=== PATIENT | male | born 1945 | race Caucasian/White ===

== ENCOUNTER 2019-03-22 00:20 | Day surgery (SDC) | payer MEDICARE, SELFPAY ==
[2019-03-16 13:39] VITALS: BMI 26.5
[2019-03-22 09:42] VITALS: BMI 25.5
[2019-03-22] MEDS: LACTATED RINGERS 1,000 ML 150 ML IV CONT (09:57)
[2019-03-22 10:01] VITALS: BP 136/80; PULSE 105; RESP 16; TEMP 37.3; O2SAT 95; BMI 25.5
--- NOTE | 2019-03-22 10:09 | WPDANESEPPF ---
Anes - Initial Pre Proc Eval Procedure: Operation Date: 03/22/19 10:00 Proposed Procedures p Screening Colonoscopy - Jimmy Rojas MD Date/Time: 03/22/19 10:09 Surgeon: Jimmy Rojas MD Pre Op Diagnosis: NEOPLASM SCREENING Patient Data Age: 73 Gender: M Height: 5 ft 10 in Weight: 80.8 kg Last Vital Signs Temp 37.3 C 03/22/19 10:01 Pulse 105 H 03/22/19 10:01 Resp 16 03/22/19 10:01 BP 136/80 03/22/19 10:01 Pulse Ox 95 03/22/19 10:01 Allergies Allergy/AdvReac Type Severity Reaction Status Date / Time No Known Allergies Allergy Verified 03/22/19 09:58 Home Medications Medication Instructions Recorded Confirmed Type albuterol sulfate 90 mcg/actuation 1 puff INHALATION Q4H PRN 01/10/19 03/16/19 History aerosol inhaler aspirin 81 mg tablet,delayed 81 mg PO DAILY 01/10/19 03/16/19 History release bimatoprost 0.01 % eye drops 1 drop EACH EYE QPM 01/10/19 03/16/19 History fluticasone propionate 50 2 spray NASAL DAILY 01/10/19 03/22/19 History mcg/actuation nasal spray,suspension levothyroxine 100 mcg tablet 100 mcg PO DAILY 01/10/19 03/16/19 History omega-3 fatty acids 1,000 mg 1,000 mg PO DAILY 01/10/19 03/16/19 History capsule pravastatin 40 mg tablet 40 mg PO DAILY #90 tablet 01/19/19 03/16/19 Rx umeclidinium 62.5 mcg-vilanterol 1 inhalation INHALATION DAILY 03/14/19 03/16/19 History 25 mcg/actuation powdr for inhalation Patient hx anesthesia problems: none Family hx anesthesia problems: none PMFSH Family History Family History Other No problems noted. Social History Social History Smoking status: Former smoker Alcohol intake: never Substance use: never Anes - Eval Final PreProcedure Day of Procedure 03/22/19 10:09 Patient weight: normal Heart: regular rate and rhythm Lungs: clear to auscultation Airway: Mallampati scale class II Neurological: alert and oriented Last oral intake: >/= 8 hours ASA classification: III Emergent: no Anesthetic plan: proceed Anesthesia type and monitoring: general GIVS and standard monitoring Informed Consent: The patient's anesthetic plan and its attendant risks and benefits were discussed with the patient/family/POA. Questions were solicited and answers provided to the satisfaction of the patient/family/POA.
--- NOTE | 2019-03-22 10:46 | PM.HPGS ---
History of Present Illness History of Present Illness Consent: Risks, benefits, and alternatives have been discussed and questions answered. Patient agrees to proceed with procedure. Chief complaint: NEOPLASM SCREENING Narrative: Calvin Ball is a 73 year old male here for screening colonoscopy, never had one. Review of Systems Constitutional: Constitutional: Denies headache(s) and Denies weakness Eyes: Eyes: Denies blurry vision ENT: Reports Normal hearing present, Denies headache(s) and Denies neck pain Cardiovascular: Cardiovascular: Denies chest pain and Denies dyspnea Respiratory: Respiratory: Denies dyspnea Gastrointestinal: Gastrointestinal: Reports no additional gastrointestinal complaints Genitourinary: Genitourinary: Denies dysuria Musculoskeletal: Musculoskeletal: Denies neck pain Integumentary/Breasts: Skin/Breast: Denies dry skin Neurologic: Reports Normal hearing present, Denies headache(s) and Denies weakness Psychiatric: Psychiatric: Denies anxiety Endocrine: Endocrine: Denies change in body appearance Hematologic/Lymphatic: Hematologic/Lymphatic: Denies easy bleeding Allergic/Immunologic: Allergic/Immunologic: Denies urticaria PMFSH Family History Family History Other No problems noted. Social History Social History Smoking status: Former smoker Alcohol intake: never Substance use: never Meds Home Medications and Allergies Home Medications Medication Instructions Recorded Confirmed Type albuterol sulfate 90 mcg/actuation 1 puff INHALATION Q4H PRN 01/10/19 03/16/19 History aerosol inhaler aspirin 81 mg tablet,delayed 81 mg PO DAILY 01/10/19 03/16/19 History release bimatoprost 0.01 % eye drops 1 drop EACH EYE QPM 01/10/19 03/16/19 History fluticasone propionate 50 2 spray NASAL DAILY 01/10/19 03/22/19 History mcg/actuation nasal spray,suspension levothyroxine 100 mcg tablet 100 mcg PO DAILY 01/10/19 03/16/19 History omega-3 fatty acids 1,000 mg 1,000 mg PO DAILY 01/10/19 03/16/19 History capsule pravastatin 40 mg tablet 40 mg PO DAILY #90 tablet 01/19/19 03/16/19 Rx umeclidinium 62.5 mcg-vilanterol 1 inhalation INHALATION DAILY 03/14/19 03/16/19 History 25 mcg/actuation powdr for inhalation Allergies Allergy/AdvReac Type Severity Reaction Status Date / Time No Known Allergies Allergy Verified 03/22/19 09:58 Vital Signs Vital Signs - 24 hr 03/22/19 10:01 Temperature 99.1 F Pulse Rate 105 H Respiratory Rate 16 Blood Pressure 136/80 Pulse Oximetry 95 Exam Const: General: comfortable and no acute distress HENMT: General nose exam: Normal nares present Eyes: General: appearance normal, both eyes and all related structures Neck: Neck: no JVD Resp: Auscultation: clear to auscultation bilaterally Cardio: Rate: regular rate Rhythm: regular rhythm GI: Inspection: non-distended GI Palp: Yes Soft to palpation Skin: General skin exam: normal color Neuro: General: gait normal Speech: normal speech Extrem: General: normal to inspection Psych: Mental Status: mental status grossly normal Assessment and Plan Assessment and plan (1) Colon cancer screening: Code(s): Z12.11 - Encounter for screening for malignant neoplasm of colon Status: Acute Assessment and Plan: will proceed with colonoscopy (2) COPD (chronic obstructive pulmonary disease) with emphysema: Qualifiers: Emphysema type: unspecified Qualified Code(s): J43.9 - Emphysema, unspecified Code(s): J43.9 - Emphysema, unspecified Status: Acute
[2019-03-22 11:08] VITALS: BP 88/59; PULSE 92; RESP 18; O2SAT 94
[2019-03-22 11:18] VITALS: BP 120/54; PULSE 89; RESP 20; O2SAT 94
[2019-03-22 11:28] VITALS: BP 119/84; PULSE 89; RESP 20; O2SAT 94
== END 2019-03-22 11:43 | disposition home or self-care (01) ==
PROVIDERS: PCP Internal Medicine; Visit Provider Internal Medicine Gastroenterology
PROC: 0DJD8ZZ Inspection of Lower Intestinal Tract, Via Natural or Artificial Opening Endoscopic (ICD-10-PCS; CPT 45378; principal; 2019-03-22 10:00)
DX: Z12.11 Encounter for screening for malignant neoplasm of colon (principal); D12.4 Benign neoplasm of descending colon; D12.5 Benign neoplasm of sigmoid colon; K57.30 Diverticulosis of large intestine without perforation or abscess without bleeding; K64.8 Other hemorrhoids; J43.9 Emphysema, unspecified; Z79.82 Long term (current) use of aspirin; Z87.891 Personal history of nicotine dependence
CPT/HCPCS: 45385; 88305; J2704; J7120

== ENCOUNTER 2020-04-11 11:06 | Outpatient (CLI) | payer MEDICARE, SELFPAY ==
--- NOTE | ~2020-04-11 | XR_ITS ---
EXAMINATION: XR shoulder RT min 2V DATE: 04/11/2020 11:35 INDICATION: Right shoulder pain. TECHNIQUE: 4 views of right shoulder were obtained. COMPARISON: None. FINDINGS: Bone alignment is normal. No fracture. There is mild osteoarthritis of glenohumeral joint a nd severe osteoarthritis of acromioclavicular joint. There is mild scarring at right lung apex. IMPRESSION: 1. Polyarticular osteoarthritis. Reviewed, dictated and finalized at location A. NE METEOROLOGIST
== END 2020-04-11 11:07 | disposition home or self-care (01) ==
PROVIDERS: PCP Internal Medicine; Visit Provider Nurse Practitioner
DX: M19.011 Primary osteoarthritis, right shoulder (principal)
CPT/HCPCS: 73030

== ENCOUNTER → 2020-05-21 11:27 | Outpatient (REF) | payer MEDICARE, SELFPAY | LOC: ANHLAB 11:27 | PROVIDERS: PCP Internal Medicine; Visit Provider Nurse Practitioner | DX: C44.42 Squamous cell carcinoma of skin of scalp and neck (principal) | CPT/HCPCS: 88305 ==

== ENCOUNTER → 2020-06-17 09:29 | Outpatient (REF) | payer MEDICARE, SELFPAY | LOC: ANHLAB 09:29 | PROVIDERS: PCP Internal Medicine; Visit Provider Nurse Practitioner | DX: C44.42 Squamous cell carcinoma of skin of scalp and neck (principal) | CPT/HCPCS: 88305; 88331 ==

== ENCOUNTER 2021-06-23 09:00 | Outpatient (RCR) | payer MEDICARE, SELFPAY ==
[2021-06-05 09:15] VITALS: BP_SYST 160
--- NOTE | 2021-06-05 10:12 | PTOPEVAL ---
PHYSICAL THERAPY EVALUATION AND PLAN OF CARE 06-05-21 Thank you for referring Calvin Ball to [facility] for the diagnosis of R shoulder pain. He is scheduled to be seen for therapy? 2 x/week for 3 weeks. Please review, sign, date and return this plan of care EVANGELIST. I agree with and certify that the following plan of care is medically necessary. Referring Physician Date Attending Provider: Sampson Huitron MD Past Medical History Source of Past Medical History Recalled from Previous Visit, Confirmed with Patient/Family Neurological History Hx Neurological Disorders No Significant History Cardiovascular History Hx Hypercholesterolemia Yes: meds Respiratory History Hx Chronic Obstructive Pulmonary Disease Yes (COPD) Gastrointestinal History Hx Gastrointestinal Disorders No Significant History Genitourinary History Hx Transurethral Resection Yes Musculoskeletal History Hx Orthopedic Surgery Yes: Rotator Cuff Bilateral 1987 Hx Other Musculoskeletal Disorders Yes: neck pain Hematological History Hx Hematological Disorders No Significant History Endocrine History Hx Endocrine Disorders No Significant History HEENT History Hx Glaucoma Yes Integumentary History Hx Skin Disorders No Significant History Reproductive History Hx Reproductive Disorders No Significant History Psychosocial History Hx Psychiatric Disorders No Significant History Pain History History of Any Previous or Ongoing No Significant History Instance of Pain Anesthesia History Hx Anesthesia Reactions No Significant History Evaluation Information Diagnosis R shoulder pain Onset Nov 2020 Subjective Information chronic pain in shoulder, Query Text:As Reported By Patient/ gradual increase, without any Family injury to shoulder- more problems with sleeping; had an injection into shoulder : helped the pain; X-Rays For This Problem Yes: mild GH OA,decrease acromial humeral space,w/spur ant acromion,A-C jt mod-severe OA Previous Treatments Previous Treatments For This Problem no PT for shoulder Prior Level of Function Activity Level (Last 3 Months) Occupation retired Hand Dominance Right Activity of Daily Living Ability Independent Indoor/Home Mobility Independent Community Mobility Independent Stairs Ability Independent Functional Cognition (Planning, Shopping Independent , Taking Medications) Cooking Yes Cleaning Yes Laundry Yes Shop
--- NOTE | 2021-06-23 09:36 | PCPTNOTE ---
PHYSICAL THERAPY DISCHARGE REPORT 06-23-21 Attending Provider: Sampson Huitron MD Patient:Calvin Ball Date of :1945 Calvin has received 6 PT sessions, from June 05 to today, for the diagnosis of R shoulder pain. Pain: he reports pain range of 0-3/10 in anterior shoulder; pain is increased with yard work for 5 hours and sleeping is not disrupted due to pain. ROM: R shoulder AROM is WNL and without pain. Strength: functional strength testing: R shoulder flexion and abduction with 4# hand weight, through full ROM for 10 reps. Home exercise program: Calvin is independent with his home exercises, is using green theraband for resistance. The goals have been achieved. He is to continue with his home exercise program. Thank you for referring Mr. Ball to [facility]. Please review, sign, date and return this discharge summary EVANGELIST. I have been updated about the patient's current status and I agree with discharge from the above service at this time. Referring Physician Date
== END 2021-06-23 15:47 | disposition home or self-care (01) ==
LOC: ANHPT 09:00
PROVIDERS: PCP Internal Medicine; Visit Provider Orthopaedic Surgery
DX: M25.511 Pain in right shoulder (principal)
CPT/HCPCS: 97014; 97110; 97140; 97161; 97530; G0283

== ENCOUNTER 2022-08-06 12:31 | Outpatient (CLI) | payer MEDICARE, SELFPAY ==
[2022-08-06] VITALS (7 sets, daily range): PULSE 98–114; O2SAT 86–91
--- NOTE | ~2022-08-06 | CT_ITS ---
EXAMINATION: CT lung screening DATE: 08/06/2022 13:56 INDICATION: Personal history nicotine dependence, prior smoker with 50 pack year history TECHNIQUE: Computed tomography (CT) of the chest was performed without intravenous contrast. The dose -length product (DLP) was 128.60 mGy-cm. Automated exposure control and iterative reconstruction tech [employer] were employed. COMPARISON: 01/17/2019 FINDINGS: There is moderate emphysema. There is an approximately 4.9 x 1.4 cm bilobed, spiculated mas s of the left upper lobe. There is a stable 7 mm nodule upper lobe. No pleural effusion or pneumothor ax. No pathologically enlarged thoracic lymph nodes are identified. The heart size is normal. There i s calcified coronary artery atherosclerosis. There is a small sliding hiatal hernia. There are minima l airspace opacities of the right lower lobe, likely infectious or inflammatory There is enlargement of the main and central pulmonary arteries, consistent with pulmonary hypertension. IMPRESSION: 1. Lung-RADS category 4B: Very suspicious. Findings for which additional diagnostic testing and/or ti ssue sampling is recommended. Reviewed, dictated and finalized at location L. IMPRESSION: 1. Lung-RADS category 4B: Very suspicious. Findings for which additional diagno stic testing and/or tissue sampling is recommended.
--- NOTE | 2022-08-06 13:40 | HOMEO2EVAL ---
Evaluation was performed at [facility] Home Oxygen Evaluation RC: Home Oxygen (O2) Evaluation Start: 08/06/22 13:35 Freq: Status: Active Protocol: RPE Activity Type Activity Date Activity User E-sign Co-sign Detail Recorded Client Recorded Date Recorded By Document 08/06/22 12:45 [email or web address] [email or web address] 08/06/22 13:40 DJO Document 08/06/22 12:50 [email or web address] [email or web address] 08/06/22 13:40 DJO Document 08/06/22 12:55 [email or web address] [email or web address] 08/06/22 13:40 DJO Document 08/06/22 13:00 [email or web address] [email or web address] 08/06/22 13:40 DJO Document 08/06/22 13:05 [email or web address] [email or web address] 08/06/22 13:40 DJO Document 08/06/22 13:10 [email or web address] [email or web address] 08/06/22 13:40 DJO Document 08/06/22 13:40 [email or web address] [email or web address] 08/06/22 13:40 DJO 08/06/22 08/06/22 08/06/22 12:45 12:50 12:55 Home O2 Evaluation [Oxygen] -Test Phase Resting Resting Resting -Oxygen Delivery Room Air Nasal Cannula Nasal Cannula -Oxygen Flow Rate (L/min) 1 2 [Pulse Oximetry] -Pulse Oximetry (90-100 %) 86 L 88 L 91 [Pulse Rate] -Pulse Rate (60-100 beats/min) 98 99 100 [Evaluation] -Activity Tolerance [Exercise] -Ambulation Distance (feet) -Ambulation Distance (meters) [Charges] -Treatment Charges O2 Evaluation - Outpatient 08/06/22 08/06/22 08/06/22 13:00 13:05 13:10 Home O2 Evaluation [Oxygen] -Test Phase Exercise Exercise Exercise -Oxygen Delivery Nasal Cannula Nasal Cannula Nasal Cannula -Oxygen Flow Rate (L/min) 2 3 4 [Pulse Oximetry] -Pulse Oximetry (90-100 %) 86 L 88 L 90 [Pulse Rate] -Pulse Rate (60-100 beats/min) 108 H 112 H 114 H [Evaluation] -Activity Tolerance Good [Exercise] -Ambulation Distance (feet) 500 -Ambulation Distance (meters) 152.39 [Charges] -Treatment Charges 08/06/22 13:40 Home O2 Evaluation [Oxygen] -Test Phase Resting -Oxygen Delivery Nasal Cannula -Oxygen Flow Rate (L/min) 2 [Pulse Oximetry] -Pulse Oximetry (90-100 %) 91 [Pulse Rate] -Pulse Rate (60-100 beats/min) 99 [Evaluation] -Activity Tolerance [Exercise] -Ambulation Distance (feet) -Ambulation Distance (meters) [Charges] -Treatment Charges
--- NOTE | 2022-08-06 16:09 | WPDPFTINT ---
PFT Procedure Performed PFT Procedure Performed Spirometry with Pre/Post Bronchodilator Plethysmography (Lung Vol) Diffusing Cap (DLCO) Flow Vol Loop PFT Interpretation This is a pulmonary function test with pre and post-bronchodilator spirometry, plethysmography and diffusing capacity. The test was performed and results interpreted in accordance with the 2019 and 2005 ATS/ERS Task Force guidelines respectively using the Global Lung Function Initiative-2012 reference equations. Patient demonstrated good effort and cooperation. Reproducibility criteria were met. The quality of the pre bronchodilator spirometry maneuver was Grade A and post bronchodilator spirometry maneuver was Grade A. Findings: Spirometry: There is decreased maximal expiratory airflow at all lung volumes with concave expiratory flow tracing. The contour the inspiratory flow tracing is normal. The pre bronchodilator FVC is 3.42 L, 85% predicted. The pre bronchodilator FEV1 is 1.34 L, 45% predicted. The pre bronchodilator FEV1: FVC ratio is 39%. The post bronchodilator FVC is 3.45 L, representing 1% increase. The post bronchodilator FEV1 is 1.32 L, representing a 2% decrease. The post bronchodilator FEV1: FVC ratio is 38%. Plethysmography: The total lung capacity is 7.51 L, 106% predicted. The functional residual capacity is 5.12 L, 135% predicted. The residual volume is 3.93 L, 151% predicted. Diffusing capacity: The diffusing capacity unadjusted for hemoglobin and carboxyhemoglobin is 6.1, 25% predicted. The diffusing capacity adjusted for alveolar volume is 1.28, 34% predicted. Impression: There is a severe obstructive abnormality without significant improvement after inhaling a single dose of albuterol. The increase in residual volume is consistent with air trapping from an obstructive abnormality. The diffusing capacity unadjusted for hemoglobin and carboxyhemoglobin is severely decreased and remains severely decreased when adjusted for alveolar volume. There are no prior studies for comparison
== END 2022-08-06 12:32 | disposition home or self-care (01) ==
LOC: ANHPFT 12:33
PROVIDERS: PCP Family Medicine; Visit Provider Internal Medicine Critical Care Medicine
DX: Z12.2 Encounter for screening for malignant neoplasm of respiratory organs (principal); Z87.891 Personal history of nicotine dependence; J43.9 Emphysema, unspecified; R94.2 Abnormal results of pulmonary function studies; R91.8 Other nonspecific abnormal finding of lung field
CPT/HCPCS: 71271; 94060; 94618; 94726; 94729

== ENCOUNTER 2022-08-25 09:13 | Outpatient (CLI) | payer MEDICARE, SELFPAY ==
--- NOTE | ~2022-08-25 | PE_ITS ---
EXAMINATION: PET skull to mid thigh DATE: 08/25/2022 11:00 INDICATION: Solitary pulmonary nodule. TECHNIQUE: Blood glucose level was 118 mg/dL. 10.05 mCi of 18-fluorodeoxyglucose (18-FDG) was adminis tered i.v. Low dose computed tomography (CT) images were acquired from the base of the brain to the p roximal thighs for attenuation correction and anatomic localization. Automated exposure control was e mployed. Dose-length product (DLP) was 494 mGy-cm. Positron emission tomography (PET) images were acq uired in the same distribution. COMPARISON: Chest CT 08/06/2022, 01/17/2019 FINDINGS: Head/neck: There are no pathologically enlarged lymph nodes. Chest: There is severe emphysema. In the left lung upper lobe, there is a 5.7 x 2.2 cm peripheral mas s with maximum SUV of 15.6. In the left upper lobe, there is a 7 mm nodule without increased activity , stable from 01/17/19, likely benign. No pleural effusion. The heart size is normal. There are coron julia artery calcifications. No pericardial effusion. Calcified right hilar lymph nodes are consistent with old granulomatous disease. Abdomen/pelvis/proximal thighs: The liver, gallbladder, and spleen are normal. There is a small slidi ng hiatal hernia. The pancreas, adrenal glands, and kidneys are normal. There is a 4.1 cm fusiform an eurysm of infrarenal aorta. The bladder is distended. There are bilateral inguinal hernias containing fat. There are no dilated loops of bowel. The appendix is normal. There are no pathologically enlarg ed lymph nodes. There is no free intraperitoneal fluid. There is osseous malignancy. IMPRESSION: 1. 5.7 x 2.2 cm peripheral mass in left lung upper lobe with increased activity. Given the patient's home oxygen use, he is likely not a candidate for CT-guided biopsy. 2. Severe emphysema. 3. 4.1 cm fusiform aneurysm of infrarenal aorta. Reviewed, dictated and finalized at location A. IMPRESSION: 1. 5.7 x 2.2 cm peripheral mass in left lung upper lobe with increased activity . Given the patient's home oxygen use, he is likely not a candidate for CT-guid ed biopsy. 2. Severe emphysema. 3. 4.1 cm fusiform aneurysm of infrarenal aorta.
[2022-08-25 09:35] LABS: Glucose Point of Care 118 mg/dl (65-105)
== END 2022-08-25 09:14 | disposition home or self-care (01) ==
PROVIDERS: PCP Family Medicine; Visit Provider Internal Medicine Critical Care Medicine
DX: R91.1 Solitary pulmonary nodule (principal); J43.9 Emphysema, unspecified; R91.8 Other nonspecific abnormal finding of lung field; I71.9 Aortic aneurysm of unspecified site, without rupture
CPT/HCPCS: 78815; A9552

== ENCOUNTER 2022-09-09 09:51 | Outpatient (CLI) | payer MEDICARE, SELFPAY ==
--- NOTE | 2022-10-06 18:49 | WPDSLEEPSTUD ---
Sleep Study Date of Study: 09/09/22 Ordering Provider: Earnestine Beatty MD Interpreting Physician: Carolyn Romero, Sleep Study Type: Polysomnogram Height: 1.78 m Weight: 79.379 kg Body Mass Index: 25.1 Neck Circumference (inches): 17 [place]: 7 Reason for Sleep Study Had a SpO2 of 88% on PFT Sleep History The patient is a 77-year-old male with COPD, hypertension, hyperlipidemia, arthritis, hypothyroidism, seasonal allergies, glaucoma and history of tobacco use that had a sleep study ordered by his water commissioner. the patient rarely awakens from sleep short of breath. He occasionally awakens at night with heartburn, belching or cough. He occasionally snores but it is never loud enough that others complain. He denies having trouble sleeping when he has a cold. He rarely wakes up gasping for air throughout the night. He constantly has breathing problems at night observed by himself or others. He denies sweating excessively at night. He denies having heart palpitations or irregular heartbeats during. He frequently falls asleep during the day but never while driving. He denies sleep paralysis, cataplexy and hypnagogic / hypnopompic hallucination. He occasionally has trouble at school or work due to sleepiness. He denies feeling afraid of going to sleep. He denies having nightmares he rarely remembers his dreams. He frequently has thoughts racing through his mind. He denies feeling sad, depressed or anxious. He denies having muscular tension. He frequently notices parts of his body jerk. He occasionally kicks during the night. He occasionally has crawling and aching feelings in his legs and occasionally has leg pain he denies grinding his teeth during sleep and denies awakening with morning jaw pain. he is occasionally bothered by pain during the day rarely awakened by pain during the night. He occasionally wakes up feeling stiff in the morning. He occasionally wakes up with sore or achy muscles. He occasionally wakes up with pain in the neck, spine other joints. He goes to bed at 9:00 p.m. on both weekdays weekends. He can fall asleep quickly. He wakes up once throughout the night to urinate and is able to back asleep within 5 minutes. He wakes up 4 a.m. on weekdays 5:00 a.m. weekends. He typically gets 4-6 hours of sleep per night. He currently lives. He will consume caffeinated beverages within 2 hours of bedtime. He does engage in physical exercise before bedtime. He denies reading before falling asleep. He will take naps in afternoon or the evening but they are refreshing. He is a former smoker. He denies alcohol and recreational use. [facility] Past Medical History Medical History Arthritis Colon cancer screening Personal history of squamous cell carcinoma of skin Tobacco abuse Surgical History Surgical History History of shoulder surgery History of transurethral resection of prostate Family History Family History Mother Depression Cardiomyopathy Emphysema lung COPD (chronic obstructive pulmonary disease) Grandparent Diabetes mellitus Father Heart attack Sibling Cancer Heart attack Heart disease Arthritis Von Willebrand disease Blockage of kidney vein Appendicitis Carcinoma Social History Social History Smoking status: Former smoker Tobacco type: cigarettes Second hand tobacco smoke exposure: No Smoking end date: 09/08/21 Alcohol intake: never Substance use: never Substance use type: does not use Lack of Transportation: No Lack of Food: Never True Current Housing: I Have Housing Concerned About Future Housing: No Difficulty Paying Gas/Electric Bills: No Difficulty Paying for Meds: No Currently Unemploy
[2022-10-06 19:38] VITALS: BMI 25.1
== END 2022-09-10 05:55 | disposition home or self-care (01) ==
LOC: ANHCSM 09:53
PROVIDERS: PCP Family Medicine; Visit Provider Internal Medicine Critical Care Medicine
DX: G47.19 Other hypersomnia (principal); G47.34 Idiopathic sleep related nonobstructive alveolar hypoventilation
CPT/HCPCS: 95810

== ENCOUNTER 2022-10-23 08:29 | Outpatient (CLI) | payer MEDICARE, SELFPAY ==
--- NOTE | ~2022-10-23 | CT_ITS ---
Clinical Indication: Left lung cancer CT Scan of the Chest, Abdomen, and Pelvis with Contrast: Technique: Contiguous sections were acquired throughout the chest, abdomen, and pelvis after intraven ous administration of 100 cc of Omnipaque 350. Dose reduction technique was used on this scan by uti garciaing automated exposure control and iterative reconstruction technique. The dose-length product (DL P) was 578.33 mGy-cm. COMPARISON: 08/06/2022 Findings: There is no evidence of any significant mediastinal, hilar or axillary lymphadenopathy. The mediastin al soft tissues appear normal. There is no evidence of pleural or pericardial effusion. Spiculated mass in the peripheral left upper lobe is similar to prior exam. Severe emphysema present. The liver, spleen, pancreas, gallbladder, adrenals and kidneys are within normal limits. Infrarenal a bdominal aortic aneurysm measures 4.7 cm in diameter. No lymphadenopathy. No bowel obstruction or bowel wall thickening. There is no evidence to suggest acute appendicitis. Urinary bladder is unremarkable. No pelvic mass evident. No ascites. Impression: Spiculated mass in left upper lobe is similar to prior exam, consistent with malignancy. No evidence for metastatic disease identified. Severe emphysema. 4.7 cm infrarenal abdominal aortic aneurysm. Reviewed, dictated and finalized at location . Impression: Spiculated mass in left upper lobe is similar to prior exam, consistent with ma lignancy. No evidence for metastatic disease identified. Severe emphysema. 4.7 cm infrarenal abdominal aortic aneurysm.
[2022-10-23 09:23] LABS: Estimated Glomerular Filt Rate > 60
== END 2022-10-23 08:30 | disposition home or self-care (01) ==
PROVIDERS: PCP Internal Medicine Hematology & Oncology; Visit Provider Internal Medicine Hematology & Oncology
DX: C34.92 Malignant neoplasm of unspecified part of left bronchus or lung (principal); J43.9 Emphysema, unspecified; I71.40 Abdominal aortic aneurysm, without rupture, unspecified
CPT/HCPCS: 71260; 74177; Q9967

== ENCOUNTER 2022-10-26 12:35 | Day surgery (SDC) | payer MEDICARE, SELFPAY ==
[2022-09-22 13:58] VITALS: BMI 25.1
[2022-10-13 14:13] VITALS: BMI 23.7
[2022-10-26 12:58] VITALS: BP 110/68; PULSE 90; RESP 20; TEMP 36.6; O2SAT 93
[2022-10-26] MEDS: LACTATED RINGERS 1,000 ML 150 ML IV CONT (13:01)
--- NOTE | 2022-10-26 13:38 | WPDANESEPPF ---
Anes - Initial Pre Proc Eval Procedure: Operation Date: 10/26/22 14:45 Proposed Procedures p Screening Colonoscopy - Jimmy Rojas MD Date/Time: 10/26/22 13:38 Surgeon: Jimmy Rojas MD Pre Op Diagnosis: hx colon polyps Patient Data Age: 77 Gender: M Height: 1.78 m Weight: 75.1 kg Last Vital Signs Temp 98 F 10/26/22 12:58 Pulse 90 10/26/22 12:58 Resp 20 10/26/22 12:58 BP 110/68 10/26/22 12:58 Pulse Ox 93 10/26/22 12:58 O2 Del Method Nasal Cannula 10/26/22 12:58 O2 Flow Rate 3 10/26/22 12:58 Allergies Allergy/AdvReac Type Severity Reaction Status Date / Time No Known Allergies Allergy Verified 10/26/22 12:56 Home Medications Medication Instructions Recorded Confirmed Type aspirin 81 mg tablet,delayed 81 mg PO DAILY 01/10/19 10/26/22 History release bimatoprost 0.01 % eye drops 1 drop ophthalmic (eye) QPM 01/10/19 10/26/22 History (Lumigan) omega-3 fatty acids 1,000 mg 1,000 mg PO DAILY 01/10/19 10/26/22 History capsule (Fish Oil Concentrate) albuterol sulfate 2.5 mg/3 mL 2.5 mg (3 mL) inhalation Q8H PRN 05/25/22 10/26/22 Rx (0.083 %) solution for nebulization shortness of breath or wheezing #180 mL fluticasone propionate 50 2 spray intranasal DAILY #16 grams 07/21/22 10/26/22 Rx mcg/actuation nasal spray,suspension (Flonase Allergy Relief) albuterol sulfate 90 mcg/actuation 2 puff inhalation Q4H PRN 10/09/22 10/26/22 Rx aerosol inhaler (ProAir HFA) Shortness Of Breath #8.5 grams Trelegy Ellipta 100 mcg-62.5 1 inh inhalation Q24H 1 month #60 10/13/22 10/26/22 Rx mcg-25 mcg powder for inhalation ea (owivwdvtzoo-oploddory-tuolperq) amlodipine 5 mg tablet 5 mg PO DAILY 10/13/22 10/26/22 History sertraline 25 mg tablet 25 mg PO DAILY 1 month #30 tabs 10/13/22 10/26/22 Rx levothyroxine 100 mcg tablet 100 mcg PO DAILY 10/26/22 10/26/22 History pravastatin 40 mg tablet 40 mg PO DAILY 10/26/22 10/26/22 History Patient hx anesthesia problems: none Family hx anesthesia problems: none Results Review: All pre-operative results and documents have been reviewed as part of the pre-operative evaluation. [facility] Past Medical History Medical History Arthritis Colon cancer screening Personal history of squamous cell carcinoma of skin Tobacco abuse Surgical History Surgical History History of shoulder surgery History of transurethral resection of prostate Family History Family History Mother Depression Cardiomyopathy Emphysema lung COPD (chronic obstructive pulmonary disease) Grandparent Diabetes mellitus Father Heart attack Sibling Cancer Heart attack Heart disease Arthritis Von Willebrand disease Blockage of kidney vein Appendicitis Carcinoma Social History Social History Smoking status: Former smoker Tobacco type: cigarettes Second hand tobacco smoke exposure: No Smoking end date: 09/08/21 Alcohol intake: never Substance use: never Substance use type: does not use Lack of Transportation: No Lack of Food: Never True Current Housing: I Have Housing Concerned About Future Housing: No Difficulty Paying Gas/Electric Bills: No Difficulty Paying for Meds: No Currently Unemployed: No Education: High School Diploma/GED Difficulty w/ Childcare or Family Care: No Living arrangements: with family Occupation/Education: retired 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
[2022-10-26 14:44] VITALS: BP 87/58; PULSE 78; RESP 22; O2SAT 98
--- NOTE | 2022-10-26 14:46 | PM.HPGS ---
History of Present Illness History of Present Illness Consent: Risks, benefits, and alternatives have been discussed and questions answered. Patient agrees to proceed with procedure. Chief complaint: hx colon polyps Narrative: Calvin Ball is a 77 year old male with colon polyps in 2020 Review of Systems Constitutional: Constitutional: Denies headache(s) and Denies weakness Eyes: Eyes: Denies blurry vision ENT: Reports Normal hearing present, Denies headache(s) and Denies neck pain Cardiovascular: Cardiovascular: Denies chest pain and Denies dyspnea Respiratory: Respiratory: Denies dyspnea Gastrointestinal: Gastrointestinal: Reports no additional gastrointestinal complaints Genitourinary: Genitourinary: Denies dysuria Musculoskeletal: Musculoskeletal: Denies neck pain Integumentary/Breasts: Skin/Breast: Denies dry skin Neurologic: Reports Normal hearing present, Denies headache(s) and Denies weakness Psychiatric: Psychiatric: Denies anxiety Endocrine: Endocrine: Denies change in body appearance Hematologic/Lymphatic: Hematologic/Lymphatic: Denies easy bleeding Allergic/Immunologic: Allergic/Immunologic: Denies urticaria PMF Past Medical History Medical History (Updated 10/26/22 @ 14:47 by Jimmy Rojas MD) Adenomatous colon polyp Arthritis Colon cancer screening Personal history of squamous cell carcinoma of skin Tobacco abuse Surgical History Surgical History History of shoulder surgery History of transurethral resection of prostate Family History Family History Mother Depression Cardiomyopathy Emphysema lung COPD (chronic obstructive pulmonary disease) Grandparent Diabetes mellitus Father Heart attack Sibling Cancer Heart attack Heart disease Arthritis Von Willebrand disease Blockage of kidney vein Appendicitis Carcinoma Social History Social History Smoking status: Former smoker Tobacco type: cigarettes Second hand tobacco smoke exposure: No Smoking end date: 09/08/21 Alcohol intake: never Substance use: never Substance use type: does not use Lack of Transportation: No Lack of Food: Never True Current Housing: I Have Housing Concerned About Future Housing: No Difficulty Paying Gas/Electric Bills: No Difficulty Paying for Meds: No Currently Unemployed: No Education: High School Diploma/GED Difficulty w/ Childcare or Family Care: No Living arrangements: with family Occupation/Education: retired Additional 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/education comments: [employer]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, 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 Gender identity (if verbalized by the patient): Male Spiritual care concerns: No Meds Home Medications and Allergies Home Medications Medication Instructions Recorded Confirmed Type aspirin 81 mg tablet,delayed 81 mg PO DAILY 01/10/19 10/26/22 History release bimatoprost 0.01 % eye drops 1 drop ophthalmic (eye) QPM 01/10/19 10/26/22 History (Chasityigan) omega-3 fatty acids 1,000 mg 1,000 mg PO DAILY 01/10/19 10/26/22 History capsule (Fish Oil Concentrate) albuterol sulfate 2.5 mg/3 mL 2.5 mg (3 mL) inhalation Q8H PRN 05/25/22 10/26/22 Rx (0.083 %) solution for nebulization shortness of breath or wheezing #180 mL fluticasone propionate 50 2 spray intranasal DAILY #16 grams 07/21/22 10/26/22 Rx mcg/actuation nasal spray,suspension (Flonase Allergy Relief) albuterol sulfate 90 mcg/actuation 2 puff inhalation Q4H PRN 10/09/22 10/26/22 Rx aerosol inhaler (ProAir HFA) Shortness Of Breath #8.5 grams Trelegy Ellipta 100 mcg-62.5 1 inh inhalation Q24H 1 month #60 10/13/22 10/26/22 Rx mcg-25 mcg powder for inhalation ea (ywarjsxqold-usdsbdpdo-whppdnmi) amlodipine 5 mg tablet 5 mg PO DAILY 10/13/22 10/26/22 History
[2022-10-26 14:54] VITALS: BP 98/54; PULSE 80; RESP 18; O2SAT 98
[2022-10-26 15:04] VITALS: BP 132/94; PULSE 85; RESP 20; O2SAT 93
== END 2022-10-26 15:10 | disposition home or self-care (01) ==
PROVIDERS: PCP Family Medicine; Referring Provider Internal Medicine Hematology & Oncology; Visit Provider Internal Medicine Gastroenterology
PROC: 0DJD8ZZ Inspection of Lower Intestinal Tract, Via Natural or Artificial Opening Endoscopic (ICD-10-PCS; CPT 45378; principal; 2022-10-26 14:45)
DX: Z12.11 Encounter for screening for malignant neoplasm of colon (principal); M19.90 Unspecified osteoarthritis, unspecified site; Z85.828 Personal history of other malignant neoplasm of skin; Z79.82 Long term (current) use of aspirin; Z79.51 Long term (current) use of inhaled steroids; Z87.891 Personal history of nicotine dependence; Z86.010 Personal history of colon polyps
CPT/HCPCS: G0105; J2001; J2704; J7120

== ENCOUNTER 2022-11-02 09:10 | Outpatient (CLI) | payer MEDICARE, SELFPAY ==
[2022-11-02 10:53] LABS: Basophils Absolute Auto 0.1 K/mm3 (0.0-0.1); Eosinophils Absolute Auto 0.4 K/mm3 (0-0.3); Eosinophils Percent Auto 5.2 % (0-4.4); Hematocrit 41.1 % (42.0-52.0); Hemoglobin 13.3 g/dL (14.0-18.0); Immature Granulocyte Absolute 0.04 K/mm3 (0.00-0.031); Immature Granulocyte Percent A 0.6 % (0-0.5); Lymphocytes Percent Auto 23.9 % (18.3-44.2); Mean Corpuscular HGB Conc 32.4 g/dl (32-36); Mean Corpuscular Hemoglobin 29.2 pg (26-34); Mean Corpuscular Volume 90.3 fl (80-100); Monocytes Absolute Auto 0.7 K/mm3 (0.1-0.6); Monocytes Percent Auto 10.4 % (2.6-8.5); Neutrophils Absolute Auto 4.2 K/mm3 (1.3-6.7); Neutrophils Percent Auto 58.9 % (45.5-73.1); Platelet Count Result 216 k/mm3 (150-375); Red Blood Count 4.55 M/mm3 (4.6-6.20); Red Cell Distribution Width 14.2 % (11.5-14.5); White Blood Count 7.1 K/mm3 (4.5-10.0)
[2022-11-02 11:05] LABS: Partial Thromboplastin Time 30.8 SECONDS (22.3-36.8); Prothrombin Time 13.9 Seconds (11.1-14.7)
== END 2022-11-02 09:11 | disposition home or self-care (01) ==
LOC: ANHSURGERY 09:14
PROVIDERS: PCP Family Medicine; Visit Provider Surgery
DX: C34.90 Malignant neoplasm of unspecified part of unspecified bronchus or lung (principal); Z01.818 Encounter for other preprocedural examination
CPT/HCPCS: 36415; 85025; 85610; 85730

== ENCOUNTER 2022-11-05 00:57 | Day surgery (SDC) | payer MEDICARE, SELFPAY ==
--- NOTE | 2022-10-30 10:43 | PC.NURSE ---
PRE-OP INSTRUCTIONS, PLEASE READ CAREFULLY Report to the Outpatient Waiting Room, entrance under the green pavilion located off [facility], at time _0900_ on date _11/05/22_. Planned Procedure Time: _1100_. Time changes happen often and if your time is changed the preop area will call you the afternoon before. - You and your visitor will be asked to self-screen and do not enter if you have any COVID symptoms. - A mask is optional within the hospital at this time. Patients may have clear liquids (water, carbonated beverages, clear teas, apple juice) until 3 hours prior to surgery (0800 AM) with a maximum of 20 ounces. - No food from midnight until time of surgery Take the following medications with a SIP of water the morning of surgery: _LEVOTHYROXINE, NASAL SPRAY, TRELEGY INHALER, & ALBUTEROL INHALER IF NEEDED_ DO NOT STOP ANY OF YOUR OTHER PRESCRIPTION MEDICATIONS PRIOR TO SURGERY ?EXCEPT THE FOLLOWING Medications to discontinue per physician ____NONE , Date to take last dose Please no make-up, nail kiswahili, hairspray, perfume, deodorant, or body powder the day of surgery. No jewelry (including any body piercings) or valuables the day of surgery, leave them at home. Please take a shower or bath the night before, or the morning of, surgery with an antibacterial soap. Wear comfortable, loose fitting clothing. - Jewelry must be removed prior to entering the operating room. Rings and piercings that are not removed may be cut off. - The hospital will not accept responsibility for valuables. - Please leave all valuables, including medications, at home the day of surgery. If you are going home after surgery, a licensed school boat driver must drive you home. - NO public transportation without another adult if you receive anesthesia. - We recommend that an adult stay with you for 24 hours following discharge. - We also recommend that you do not drive, make important decision, drink alcoholic beverages, or take any drugs that were not prescribed by your health care provider for at least 24 hours after your discharge time. Follow any additional instructions given to you from your surgeon. If you or anyone in your household have experienced Covid symptoms in the past week, please notify your surgeon or the nurse liaison at the phone number below for possible testing. Telephone instructions given to _PATIENT_and asked if any additional questions and then verbalized understanding. Patient advised to call surgeon office or pre surgery nurse liaison [phone] if any additional questions.
[2022-10-30 10:46] VITALS: BMI 23.7
--- NOTE | ~2022-11-05 | XR_ITS ---
XR chest port-a-cath/central, XR fl guide central line place 11/05/2022 11:11 (accession [id number]), 11/05/2022 10:54 (accession [id number]) Indication: Insertion of portacatheter Procedure: 2 fluoroscopic images of the right chest during portacatheter placement. AP portable chest post catheter placement. 52 seconds of fluoroscopy. Comparison: 11/21/2016 Findings: Right-sided subclavian ara catheter tip in the SVC. Heart size normal. There is an irregu lar shaped mass in the left upper thorax, concerning for bronchogenic carcinoma. There are mild diffu se bladder interstitial infiltrates which may represent edema. No significant effusion. No pneumothor ax. Impression: 1: Irregular shaped mass left upper thorax, concerning for bronchogenic carcinoma. 2: Portacatheter tip in the SVC. 2: Mild diffuse bilateral interstitial infiltrates, suspicious for edema. Reviewed, dictated and finalized at location L. Impression: 1: Irregular shaped mass left upper thorax, concerning for bronchogenic carcino ma. 2: Portacatheter tip in the SVC. 2: Mild diffuse bilateral interstitial infiltrates, suspicious for edema. Impression: 1: Irregular shaped mass left upper thorax, concerning for bronchogenic carcino ma. 2: Portacatheter tip in the SVC. 2: Mild diffuse bilateral interstitial infiltrates, suspicious for edema.
--- NOTE | 2022-11-05 07:33 | PM.IMHP ---
H&P: HPI History of Present Illness Date/Time: 11/05/22 07:33 Chief Complaint: lung cancer Narrative: The patient is a 77-year-old male presenting for port placement to facilitate chemotherapy access. 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 The patient denies any previous central venous catheterization. Review of Systems Review of Systems: All systems reviewed & are unremarkable except as noted in HPI and below PMFSH Past Medical History Medical History Adenomatous colon polyp Arthritis Colon cancer screening Personal history of squamous cell carcinoma of skin Tobacco abuse Surgical History Surgical History History of shoulder surgery History of transurethral resection of prostate Family History Family History Mother Depression Cardiomyopathy Emphysema lung COPD (chronic obstructive pulmonary disease) Grandparent Diabetes mellitus Father Heart attack Sibling Cancer Heart attack Heart disease Arthritis Von Willebrand disease Blockage of kidney vein Appendicitis Carcinoma Social History Social History Smoking packs per day: 2 Smoking cigarettes per day: 40.0 Years smoked: 60 Smoking pack-years: 120.00 Smoking status: Former smoker Tobacco type: cigarettes Second hand tobacco smoke exposure: No Smoking end date: 09/08/21 Additional smoking assessment comments: was down to one pack per day when he stopped Alcohol intake: never Substance use: never Substance use type: does not use Lack of Transportation: No Lack of Food: Never True Current Housing: I Have Housing Concerned About Future Housing: No Difficulty Paying Gas/Electric Bills: No Difficulty Paying for Meds: No Currently Unemployed: No Education: High School Diploma/GED Difficulty w/ Childcare or Family Care: No Living arrangements: alone Occupation/Education: retired 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, 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 Gender identity (if verbalized by the patient): Male Spiritual care concerns: No Meds Home Medications and Allergies Home Medications Medication Instructions Recorded Confirmed Type aspirin 81 mg tablet,delayed 81 mg PO DAILY 01/10/19 11/03/22 History release bimatoprost 0.01 % eye drops 1 drop ophthalmic (eye) QPM 01/10/19 11/03/22 History (Ana) omega-3 fatty acids 1,000 mg 1,000 mg PO DAILY 01/10/19 11/03/22 History capsule (Fish Oil Concentrate) albuterol sulfate 2.5 mg/3 mL 2.5 mg (3 mL) inhalation Q8H PRN 05/25/22 11/03/22 Rx (0.083 %) solution for nebulization shortness of breath or wheezing #180 mL fluticasone propionate 50 2 spray intranasal DAILY #16 grams 07/21/22 11/03/22 Rx mcg/actuation nasal spray,suspension (Flonase Allergy Relief) albuterol sulfate 90 mcg/actuation 2 puff inhalation Q4H PRN 10/09/22 11/03/22 Rx aerosol inhaler (ProAir HFA) Shortness Of Breath #8.5 grams Trelegy Ellipta 100 mcg-62.5 1 inh inhalation Q24H 1 month #60 10/13/22 11/03/22 Rx mcg-25 mcg powder for inhalation ea (wozzthuemzq-dtdctrtkv-qpcicdlp) levothyroxine 100 mcg tablet 100 mcg PO DAILY 10/26/22 11/03/22 History pravastatin 40 mg tablet 40 mg PO DAILY 10/26/22 11/03/22 History Allergies Allergy/AdvReac Type Severity Reaction Status Date / Time No Known Allergies Allergy Verified 11/03/22 08:43 Exam Const: General: cooperative, comfortable, no acute distress, ill appearing and underweight Neck: Neck: normal visual inspection, full ROM and no lymphadenopathy Chest: Chest palpation & inspection: normal inspection of the chest Resp: Auscultation: diminished lung maureen
[2022-11-05 09:06] VITALS: BP 150/79; PULSE 78; RESP 18; TEMP 36.4; O2SAT 95
--- NOTE | 2022-11-05 09:36 | WPDHPUPDATE1 ---
History and Physical Update Update Date/Time: 11/05/22 09:36 History and Physical has been reviewed, including an updated exam of the patient. There are NO changes in the patient's condition. Risks, benefits, and alternatives have been discussed and questions answered. Patient agrees to proceed with procedure.
--- NOTE | 2022-11-05 09:44 | WPDANESEPPF ---
Anes - Initial Pre Proc Eval Procedure: Operation Date: 11/05/22 11:00 Proposed Procedures p Insertion Lo Cath - Madeleine Polo MD Date/Time: 11/05/22 09:44 Surgeon: Madeleine Polo MD Pre Op Diagnosis: non small cell CA left lung Patient Data Age: 77 Gender: M Height: 1.78 m Weight: 75 kg Allergies Allergy/AdvReac Type Severity Reaction Status Date / Time No Known Allergies Allergy Verified 11/05/22 09:42 Home Medications Medication Instructions Recorded Confirmed Type aspirin 81 mg tablet,delayed 81 mg PO DAILY 01/10/19 11/05/22 History release bimatoprost 0.01 % eye drops 1 drop ophthalmic (eye) QPM 01/10/19 11/05/22 History (Lumigan) omega-3 fatty acids 1,000 mg 1,000 mg PO DAILY 01/10/19 11/05/22 History capsule (Fish Oil Concentrate) albuterol sulfate 2.5 mg/3 mL 2.5 mg (3 mL) inhalation Q8H PRN 05/25/22 11/05/22 Rx (0.083 %) solution for nebulization shortness of breath or wheezing #180 mL fluticasone propionate 50 2 spray intranasal DAILY #16 grams 07/21/22 11/05/22 Rx mcg/actuation nasal spray,suspension (Flonase Allergy Relief) albuterol sulfate 90 mcg/actuation 2 puff inhalation Q4H PRN 10/09/22 11/05/22 Rx aerosol inhaler (ProAir HFA) Shortness Of Breath #8.5 grams Trelegy Ellipta 100 mcg-62.5 1 inh inhalation Q24H 1 month #60 10/13/22 11/05/22 Rx mcg-25 mcg powder for inhalation ea (sdfmfigekgy-rxehdmjau-qjrsqycz) levothyroxine 100 mcg tablet 100 mcg PO DAILY 10/26/22 11/05/22 History pravastatin 40 mg tablet 40 mg PO DAILY 10/26/22 11/05/22 History Patient hx anesthesia problems: none Family hx anesthesia problems: none Results Review: All pre-operative results and documents have been reviewed as part of the pre-operative evaluation. [facility] Past Medical History Medical History Adenomatous colon polyp Arthritis Colon cancer screening Personal history of squamous cell carcinoma of skin Tobacco abuse Surgical History Surgical History History of shoulder surgery History of transurethral resection of prostate Family History Family History Mother Depression Cardiomyopathy Emphysema lung COPD (chronic obstructive pulmonary disease) Grandparent Diabetes mellitus Father Heart attack Sibling Cancer Heart attack Heart disease Arthritis Von Willebrand disease Blockage of kidney vein Appendicitis Carcinoma Social History Social History Smoking packs per day: 2 Smoking cigarettes per day: 40.0 Years smoked: 60 Smoking pack-years: 120.00 Smoking status: Former smoker Tobacco type: cigarettes Second hand tobacco smoke exposure: No Smoking end date: 09/08/21 Additional smoking assessment comments: was down to one pack per day when he stopped Alcohol intake: never Substance use: never Substance use type: does not use Lack of Transportation: No Lack of Food: Never True Current Housing: I Have Housing Concerned About Future Housing: No Difficulty Paying Gas/Electric Bills: No Difficulty Paying for Meds: No Currently Unemployed: No Education: High School Diploma/GED Difficulty w/ Childcare or Family Care: No Living arrangements: alone Occupation/Education: retired 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
[2022-11-05] MEDS: LACTATED RINGERS 1,000 ML 30 ML IV CONT (09:46)
[2022-11-05] MEDS: KETOROLAC 15 MG/ML VIAL (*BKC) IV PUSH (09:47)
[2022-11-05] MEDS: ceFAZolin 2 GM/D5W 50 ML 2 GM/50 ML BAG IVPB (10:06)
--- NOTE | 2022-11-05 10:32 | SUR.OPER ---
U/S IN ROOM AND NOT USED.
[2022-11-05] MEDS: BUPIVACAINE/EPINEPHRINE 0.5% 50 ML VIAL 20 ML INFILTRATE (10:37)
--- NOTE | 2022-11-05 10:48 | W.PM.PROC2 ---
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 After adequate induction of mac anesthesia, the patient was prepped and draped in normal sterile fashion. Time-out was then done to verify the patient's identity, as well as the procedure being performed. I began by making a small incision in the right chest, I then gained access into the right subclavian vein with an 18 gauge needle. I then placed the guidewire into the vein and confirmed placement via fluoroscopic guidance. I then locally anesthetized the area in the right chest. I then enlarged the incision around the guidewire including making a subcutaneous pocket inferiorly to allow placement of the port itself. I then placed a dilating sheath over the guidewire into the right subclavian vein via sterile Seldinger technique. This was once again done and confirmed via fluoroscopic guidance. I then removed the dilator and the guidewire, now just leaving the sheath in the vein. I then fed the previously flushed catheter into the right subclavian vein under fluoroscopic guidance. At approximately 18 cm, the catheter was noted to be near the atrial caval junction. I then peeled away the sheath, now just leaving the catheter in the vein. I then was able to easily draw and flush from the catheter. The catheter was cut to fit and attached to the port itself. The port was placed into the previously made subcutaneous pocket and sutured in with 0 Ethibond suture. Final fluoroscopic view showed the termination of the catheter at the atrial caval junction with a nice smooth curvature back to the port itself. I was able to gain access to the port with a Fox needle and was able to easily draw and flush from the port. I then flushed 4 cc of a final heparin flush into the port. The incision was closed with 3 0 Vicryl suture in the subcutaneous tissue and the skin was closed with 4 O Monocryl subcuticular suture. Dermabond was then placed on wound. The patient tolerated the procedure well and will be sent to the recovery room in stable condition. Implants R SCV VAD Estimated Blood Loss 10 Drains No Packing No Pathology None sent Complications No immediate complications Condition Stable Disposition PACU [facility] Billing Surgery - Charge Forward: Surgery Billing
[2022-11-05 10:56] VITALS: BP 116/70; PULSE 77; RESP 16; O2SAT 100
--- NOTE | 2022-11-05 11:14 | SUR.PHASEII ---
CXR DONE IN ROOM.
[2022-11-05 11:25] VITALS: BP 132/80; PULSE 73; RESP 16; O2SAT 99
[2022-11-05 12:05] VITALS: BP 143/83; PULSE 75; RESP 16; O2SAT 98
--- NOTE | 2022-11-05 12:21 | SUR.PHASEII ---
CXR READ NO PNEUMOTHORAX.
== END 2022-11-05 12:22 | disposition home or self-care (01) ==
PROVIDERS: PCP Family Medicine; Visit Provider Surgery
PROC: (CPT 36561; principal; 2022-11-05 11:00)
DX: C34.12 Malignant neoplasm of upper lobe, left bronchus or lung (principal); Z79.51 Long term (current) use of inhaled steroids; Z79.82 Long term (current) use of aspirin; Z87.891 Personal history of nicotine dependence
CPT/HCPCS: 36561; 77001; C1788; J0690; J1644; J1885; J2704; J3010; J7030; J7120

== ENCOUNTER 2022-11-06 06:37 | Outpatient (CLI) | payer MEDICARE, SELFPAY ==
--- NOTE | ~2022-11-06 | MR_ITS ---
EXAMINATION: MR brain/brain stem wo/w con DATE: 11/06/2022 07:56 INDICATION: Stage IIB non-small cell lung cancer. Staging. TECHNIQUE: Magnetic resonance imaging (MRI) of the brain and brainstem was performed without and with 15 mL MultiHance intravenous contrast. COMPARISON: PET CT 08/25/2022 FINDINGS: There are scattered areas of nonspecific increased T2-weighted signal intensity in the cere bral white matter. There is a small microhemorrhage in left parietal lobe. There is no acute ischemic infarct or abnormal mass lesion. There is mild mucosal thickening in the ethmoid sinuses. There are likely changes of ocular lens replacement surgeries. The mastoid air cells are normal. IMPRESSION: 1. No evidence of metastatic disease. 2. Mild nonspecific cerebral white matter disease, which likely represents chronic small vessel ische venita disease. Reviewed, dictated and finalized at location E. IMPRESSION: 1. No evidence of metastatic disease. 2. Mild nonspecific cerebral white matter disease, which likely represents drawing supervisor zurdo small vessel ischemic disease.
== END 2022-11-06 06:38 | disposition home or self-care (01) ==
PROVIDERS: PCP Family Medicine; Visit Provider Radiology Radiation Oncology
DX: C34.90 Malignant neoplasm of unspecified part of unspecified bronchus or lung (principal); R90.82 White matter disease, unspecified
CPT/HCPCS: 70553; 77290; 77293; 77300; 77301; 77338; A9577

== ENCOUNTER 2023-01-07 08:17 | Outpatient (CLI) | payer MEDICARE, SELFPAY ==
[2023-01-07 09:04] LABS: Cholesterol 196 mg/dL (0-200); HDL Direct 52 mg/dL; Triglycerides 116 mg/dL (<150)
[2023-01-07 09:15] LABS: LDL Cholesterol Direct 108 mg/dL
[2023-01-07 09:34] LABS: Thyroid Stimulating Hormone 0.549 uIU/mL (0.465-4.680)
[2023-01-07 10:56] LABS: Free T4 Free Thyroxine 1.98 ng/mL (0.78-2.19)
== END 2023-01-07 08:18 | disposition home or self-care (01) ==
PROVIDERS: Nurse Practitioner Family; PCP Family Medicine; Visit Provider Internal Medicine Hematology & Oncology
DX: E78.5 Hyperlipidemia, unspecified (principal); E03.9 Hypothyroidism, unspecified
CPT/HCPCS: 36415; 80061; 84439; 84443

== ENCOUNTER 2023-02-18 09:40 | Outpatient (CLI) | payer MEDICARE, SELFPAY ==
--- NOTE | ~2023-02-18 | CT_ITS ---
Clinical Indication: Lung cancer CT Scan of the Chest with Contrast: Technique: Contiguous sections were acquired throughout the chest after intravenous administration of 75 cc of Omnipaque 350. Dose reduction technique was used on this scan by utilizing automated exposu re control and iterative reconstruction technique. The dose-length product (DLP) was 209.52 mGy-cm. COMPARISON: 10/23/2022 Findings: There is no evidence of any significant mediastinal, hilar or axillary lymphadenopathy. There is no f illing defect in the pulmonary arterial tree to suggest pulmonary embolus. There is no evidence of ao rtic dissection or aneurysm. There is no evidence of pleural or pericardial effusion. Severe emphysema present. There again identified is an irregular peripheral density/consolidation in the left upper lobe, slightly decreased nodularity as compared to prior exam. There is bibasilar patc hy consolidation, new from prior exam. Images through the upper abdomen reveal no abnormalities. Impression: Irregular peripheral lesion/consolidation left upper lobe is minimally decreased and nodularity/exten t as compared to prior exam. Patchy bibasilar consolidation is new from prior exam, and could reflect atelectasis versus pneumonia . Correlate clinically. Reviewed, dictated and finalized at [facility]. R BOARDING ROOM Impression: Irregular peripheral lesion/consolidation left upper lobe is minimally decrease d and nodularity/extent as compared to prior exam. Patchy bibasilar consolidation is new from prior exam, and could reflect atelec tasis versus pneumonia. Correlate clinically.
[2023-02-18 10:22] LABS: Estimated Glomerular Filt Rate > 60
== END 2023-02-18 09:41 | disposition home or self-care (01) ==
PROVIDERS: PCP Nurse Practitioner; Visit Provider Internal Medicine Hematology & Oncology
DX: C34.92 Malignant neoplasm of unspecified part of left bronchus or lung (principal); R91.8 Other nonspecific abnormal finding of lung field
CPT/HCPCS: 71260; Q9967

== ENCOUNTER 2023-03-30 08:52 | Outpatient (CLI) | payer MEDICARE, SELFPAY ==
--- NOTE | ~2023-03-30 | XR_ITS ---
EXAMINATION: XR chest 2V DATE: 03/30/2023 09:09 INDICATION: Atelectasis and shortness of breath, history of lung cancer TECHNIQUE: PA and lateral views of the chest are obtained. COMPARISON: CT, 02/18/2023 FINDINGS: There are airspace opacities of the left lower lobe. Persistent airspace opacities are seen in the left upper lobe, likely related to treated malignancy. No pleural effusion or pneumothorax. T he cardiomediastinal silhouette is normal. There is mild thoracic spondylosis. A right subclavian Por t-A-Cath ends with its tip in the midsuperior vena cava. IMPRESSION: 1. Left lower lobe airspace opacities, consistent with atelectasis versus pneumonia. 2. Left upper lobe opacity, likely treated malignancy. Reviewed, dictated and finalized at location [facility] [facility] IMPRESSION: 1. Left lower lobe airspace opacities, consistent with atelectasis versus pneum onia. 2. Left upper lobe opacity, likely treated malignancy.
== END 2023-03-30 08:53 | disposition home or self-care (01) ==
LOC: ANHIMG 08:54
PROVIDERS: PCP Nurse Practitioner; Visit Provider Internal Medicine Critical Care Medicine
DX: J98.11 Atelectasis (principal)
CPT/HCPCS: 71046; 99212; G0463

== ENCOUNTER 2023-05-24 09:24 | Outpatient (CLI) | payer MEDICARE, SELFPAY ==
--- NOTE | ~2023-05-24 | CT_ITS ---
Clinical Indication: Lung cancer CT Scan of the Chest with Contrast: Technique: Contiguous sections were acquired throughout the chest after intravenous administration of 75 cc of Omnipaque 350. Dose reduction technique was used on this scan by utilizing automated exposu re control and iterative reconstruction technique. The dose-length product (DLP) was 311.10 mGy-cm. COMPARISON: 02/18/2023 Findings: There is no evidence of any significant mediastinal, hilar or axillary lymphadenopathy. There is no f illing defect in the pulmonary arterial tree to suggest pulmonary embolus. There is no evidence of ao rtic dissection or aneurysm. There is no evidence of pleural or pericardial effusion. Advanced emphysema present. Stable somewhat bilobed density/consolidation peripheral left upper lobe, which could reflect correlate to disease. Images through the upper abdomen reveal no abnormalities. Impression: Stable left upper lobe peripheral lesion, suggestive of chronic sequela of treated disease. Advanced emphysema. Reviewed, dictated and finalized at [facility]. Impression: Stable left upper lobe peripheral lesion, suggestive of chronic sequela of kimberly vijay disease. Advanced emphysema.
== END 2023-05-24 09:25 | disposition home or self-care (01) ==
PROVIDERS: PCP Nurse Practitioner; Visit Provider Internal Medicine Hematology & Oncology
DX: C34.92 Malignant neoplasm of unspecified part of left bronchus or lung (principal); J43.9 Emphysema, unspecified
CPT/HCPCS: 71260; Q9967

== ENCOUNTER 2023-08-18 08:20 | Outpatient (CLI) | payer MEDICARE, SELFPAY ==
--- NOTE | ~2023-08-18 | CT_ITS ---
Clinical Indication: Lung cancer CT Scan of the Chest with Contrast: Technique: Contiguous sections were acquired throughout the chest after intravenous administration of 75 cc of Omnipaque 350. Dose reduction technique was used on this scan by utilizing automated exposu re control and iterative reconstruction technique. The dose-length product (DLP) was 287.24 mGy-cm. COMPARISON: 05/24/2023 Findings: There is no evidence of any significant mediastinal, hilar or axillary lymphadenopathy. There is no f illing defect in the pulmonary arterial tree to suggest pulmonary embolus. There is no evidence of ao rtic dissection or aneurysm. There is no evidence of pleural or pericardial effusion. There is severe emphysema with mild chronic bibasilar interstitial change. Probable chronic posttreat ment change in the peripheral left upper lobe, stable from prior exam. Images through the upper abdomen reveal no abnormalities. Impression: Stable probable chronic posttreatment changes in the peripheral left upper lobe. Severe emphysema, unchanged. Reviewed, dictated and finalized at [facility]. Impression: Stable probable chronic posttreatment changes in the peripheral left upper lobe . Severe emphysema, unchanged.
== END 2023-08-18 08:21 | disposition home or self-care (01) ==
PROVIDERS: PCP Nurse Practitioner; Visit Provider Internal Medicine Hematology & Oncology
DX: C34.92 Malignant neoplasm of unspecified part of left bronchus or lung (principal); J43.9 Emphysema, unspecified
CPT/HCPCS: 71260; Q9967

== ENCOUNTER 2023-11-10 08:23 | Outpatient (CLI) | payer MEDICARE, SELFPAY ==
--- NOTE | ~2023-11-10 | CT_ITS ---
Clinical Indication: Lung cancer CT Scan of the Chest with Contrast: Technique: Contiguous sections were acquired throughout the chest after intravenous administration of 75 cc of Omnipaque 350. Dose reduction technique was used on this scan by utilizing automated exposu re control and iterative reconstruction technique. The dose-length product (DLP) was 277.12 mGy-cm. COMPARISON: 08/18/2023 Findings: There is no evidence of any significant mediastinal, hilar or axillary lymphadenopathy. There is no f illing defect in the pulmonary arterial tree to suggest pulmonary embolus. There is no evidence of ao rtic dissection or aneurysm. There is no evidence of pleural or pericardial effusion. Advanced emphysema and areas of chronic scarring are stable from prior exam. Stable chronic interstit ial change of the right lung base. Images through the upper abdomen reveal no abnormalities. Impression: Stable exam. Advanced emphysema and stable areas of bilateral scarring. No evidence for active malign pedrito or metastatic disease. Reviewed, dictated and finalized at [facility]. Impression: Stable exam. Advanced emphysema and stable areas of bilateral scarring. No evid ence for active malignancy or metastatic disease.
== END 2023-11-10 08:24 | disposition home or self-care (01) ==
PROVIDERS: PCP Nurse Practitioner; Visit Provider Internal Medicine Hematology & Oncology
DX: C34.92 Malignant neoplasm of unspecified part of left bronchus or lung (principal); J43.9 Emphysema, unspecified; R91.8 Other nonspecific abnormal finding of lung field
CPT/HCPCS: 71260; Q9967

== ENCOUNTER 2024-03-29 08:07 | Outpatient (CLI) | payer MEDICARE, SELFPAY ==
--- NOTE | ~2024-03-29 | CT_ITS ---
Clinical Indication: Lung cancer CT Scan of the Chest with Contrast: Technique: Contiguous sections were acquired throughout the chest after intravenous administration of 75 cc of Omnipaque 350. Dose reduction technique was used on this scan by utilizing automated exposu re control and iterative reconstruction technique. The dose-length product (DLP) was 259.77 mGy-cm. COMPARISON: 11/10/2023 Findings: There is no evidence of any significant mediastinal, hilar or axillary lymphadenopathy. There is no f illing defect in the pulmonary arterial tree to suggest pulmonary embolus. There is no evidence of ao rtic dissection or aneurysm. There is no evidence of pleural or pericardial effusion. Severe emphysema present. There is peripheral left upper lobe scarring or post radiation change/postt reatment change. Images through the upper abdomen reveal no abnormalities. Impression: Severe emphysema. Stable peripheral left upper lobe scarring or post therapy/post radiation change. Reviewed, dictated and finalized at [facility]. R WHIPPED TOPPING Impression: Severe emphysema. Stable peripheral left upper lobe scarring or post therapy/post radiation erik wiseman
--- OUTSIDE RECORDS SUMMARY | 2024-03-29 08:10 | XMS_ITS | Patient Health Summary ---
Author Organization [facility] Address [address] [place] [address] Care Team Providers Care Automobile Body Repair Chief Name Role Phone Stephan Frazier DO Primary Care Provider [phone] Note from [facility],non-owned Affiliates and Associated Physician Practices is amultiple site organization consisting of ambulatory clinics and hospital sitesin [place], [place], [place] and [place]. This disclosure is being madepursuant to the Care Everywhere program and may not contain all information available regarding this patient. Last updated 17.[facility] Allergies No known active allergies Immunizations * INFLUENZA VACCINE, HIGH-DOSE, QUADR. (FLUZONE HIGH-DOSE QUADRIVALENT; 65Y+), 0.7 ML (HD-IIV4)(Given 11/15/2019) Social History Tobacco Use Types Packs/Day Years Used Date Smoking Tobacco: Never Assessed Sex and Gender Information Value Date Recorded Sex Assigned at Not on file Gender Identity Not on file Sexual Orientation Not on file Care Teams Automobile Body Repair Chief Relationship Specialty Start Date End Date Stephan Frazier DO [address] [address] PCP - General 07/14/20
--- OUTSIDE RECORDS SUMMARY | 2024-03-29 08:10 | XMS_ITS | Referral Summary ---
Author Organization [facility] Address [address] [place] [address] Care Team Providers Care Billing Spec Name Role Phone Stephan Frazier DO Primary Care Provider [phone] Source Comments [facility],non-owned Affiliates and Associated Physician Practices is amultiple site organization consisting of ambulatory clinics and hospital sitesin [place], [place], [place] and [place]. This disclosure is being madepursuant to the Care Everywhere program and may not contain all information available regarding this patient. Last updated 17.[facility] Allergies No known active allergies Immunizations Name Administration Dates Next Due INFLUENZA VACCINE, HIGH-DOSE , QUADR. (FLUZONE HIGH-DOSE QUADRIVALENT; 65Y+), 0.7 ML (HD-IIV4) 11/15/2019 Social History Tobacco Use Types Packs/Day Years Used Date Smoking Tobacco: Never Assessed Sex and Gender Information Value Date Recorded Sex Assigned at Not on file Gender Identity Not on file Sexual Orientation Not on file Plan of Treatment Not on file Care Teams Billing Spec Relationship Specialty Start Date End Date Stephan Frazier DO [address] [place] [address] PCP - General 07/14/20
--- OUTSIDE RECORDS SUMMARY | 2024-03-29 08:10 | XMS_ITS | Clinical Summary ---
Author Organization [facility] Address [address] [place] [address] Care Team Providers Care Surveillance Sensor Operator Name Role Phone Stephan Frazier DO Primary Care Provider [phone] Source Comments [facility],non-owned Affiliates and Associated Physician Practices is amultiple site organization consisting of ambulatory clinics and hospital sitesin [place], [place], [place] and [place]. This disclosure is being madepursuant to the Care Everywhere program and may not contain all information available regarding this patient. Last updated 17.[facility] Allergies No known active allergies Immunizations Name Administration Dates Next Due INFLUENZA VACCINE, HIGH-DOSE , QUADR. (FLUZONE HIGH-DOSE QUADRIVALENT; 65Y+), 0.7 ML (HD-IIV4) 11/15/2019 Social History Tobacco Use Types Packs/Day Years Used Date Smoking Tobacco: Never Assessed Sex and Gender Information Value Date Recorded Sex Assigned at Not on file Gender Identity Not on file Sexual Orientation Not on file Plan of Treatment Health Maintenance Due Date Last Done Comments MEDICARE AWV 12 MONTHS 1945 HEPATITIS C SCREENING 07/28/1963 DTAP/TDAP/TD VACCINES (1 - Tdap) 1964 PNEUMOCOCCAL VACCINE 50+ (1 of 1 - PCV) 08/02/1995 ZOSTER VACCINE (1 of 2) 08/02/1995 Respiratory Syncytial Virus (RSV) Vaccine Pt: or over 60 yrs (1 - 1-dose 75+ series) 2020 COVID-19 VACCINE ( - 2023-2 5 season) 2023 INFLUENZA VACCINE (#1) 2023 11/15/2019 DEPRESSION SCREENING 02/09/2024 HEPATITIS B VACCINE Aged Out No longe r eligible based on patient's age to complete this topic HIB VACCINE Aged Out No longer eligi ble based on patient's age to complete this topic HPV VACCINE Aged Out No longer eligi ble based on patient's age to complete this topic MENINGOCOCCAL (Group B) VACCINE Aged Out No longer eligible based on patient's age to complete this topic MENINGOCOCCAL VACCINE Aged Out No kyle lloyd eligible based on patient's age to complete this topic Care Teams Surveillance Sensor Operator Relationship Specialty Start Date End Date Stephan Frazier DO [address] [place] [address] PCP - General 07/14/20
--- OUTSIDE RECORDS SUMMARY | 2024-03-29 08:10 | XMS_ITS | Clinical Summary ---
Author Organization [facility] Address [address] [place] [address] Phone Care Team Providers Care Nurse Aide Evaluator Name Role Phone Stephan Frazier Primary Care Provider [phone] Allergies No known active allergies Medications aspirin (ECOTRIN EC) 81 mg Tablet, Delayed Release (E.C.) Take 81 mg by mouth daily. Active atorvastatin (LIPITOR) 10 mg tablet Take 10 mg by mouth daily. Active lidocaine-prilo kavita (EMLA) 2.5-2.5 % CreamIndication s:Non-small cell cancer of left lung (CMS/HCC) Apply to affected area see administration instructions. 30 Gram 1 11/10/19 23 Active ondansetron (ZOFRAN ODT) 8 mg Tablet, Rapid DissolveIndicat ions:Non-small cell cancer of left lung (CMS/HCC) Dissolve 1 tablet on top of tongue then swallow with saliva every 8 hours as needed for nausea or vomiting 30 Tablet 1 11/10/19 23 Active dexAMETHasone (DECADRON) 4 mg tablet Take 1 tablet my mouth BID the day before, the day of, and the day after treatment. 6 Tablet 3 01/06/20 23 Active amLODIPine (NORVASC) 5 mg tablet Take 1 Tablet by mouth daily. 01/09/20 23 Active zolpidem (AMBIEN) 5 mg tabletIndicatio ns:Insomnia, unspecified type TAKE 1 TABLET(5 MG) BY MOUTH EVERY NIGHT NEEDED FOR INSOMNIA 30 Tablet 1 04/06/19 24 Active methylPREDNISol one (MEDROL DOSPACK) 4 mg Tablets, Dose Pack Use as directed 21 Tablet 05/05/19 24 Active diphenhydrAMINE -zinc acetate (Benadryl Extra Strength) 2-0.1 % Cream Apply to affected area every 6 hours as needed for Rash or Redness. 35 Gram 1 05/06/19 24 Active Active Problems No known active problems Encounters Date Type Department Care Team Description 03/20/2024 Orders Only [facility] Oncology and Hematology - [address] Unruly Kenyon MD Benign hypertension; Non-small cell cancer of left lung (CMS/HCC) 03/10/2024 Orders Only [facility] Oncology and Hematology - [place] [address] [place] [phone] Unruly Kenyon MD 03/09/2024 Orders Only [facility] Oncology and Hematology - [address] [place] [id number] Unruly Kenyon MD 03/08/2024 9:15 AM INTENSIVE CARE UNIT NURSE Office Visit [facility] Oncology and Hematology - [place] [address] [place] [phone] Unruly Kenyon MD Non-small cell cancer of left lung (CMS/HCC) (Primary Dx) 03/08/2024 Orders Only [facility] Oncology and Hematology - [place] [address] [place] [address] Unruly Kenyon MD 03/06/2024 Orders Only [facility] Oncology and Hematology - [place] [address] [place] [address] Unruly Kenyon MD Benign hypertension; Non-small cell cancer of left lung (CMS/HCC) 03/01/2024 External Device Data STL ABSTRACTION Provider, Abstract 03/01/2024 External Device Data STL ABSTRACTION Provider, Abstract 02/23/2024 Orders Only [facility] Oncology and Hematology - [address] [place] [phone] Unruly Kenyon MD 02/21/2024 Orders Only [facility] Oncology and Hematology - [place] [address] Unruly Kenyon MD Benign hypertension; Non-small cell cancer of left lung (CMS/HCC) 02/18/2024 Orders Only [facility] Oncology and Hematology - [place] [address] [place] [phone] Unruly Kenyon MD 02/16/2024 Orders Only [facility] Oncology and Hematology - [address] [place] [phone] Unruly Kenyon MD 02/10/2024 9:30 AM INTENSIVE CARE UNIT NURSE Office Visit [facility] Oncology and Hematology - [place] [address] Victorina Boucher MD Non-small cell cancer of left lung (CMS/HCC) (Primary Dx) 02/10/2024 Orders Only [facility] Oncology and Hematology - [place] [address] [place] [id number] Unruly Kenyon MD Need for hepatitis B screening test (Primary Dx) 02/07/2024 Orders Only [facility] Oncology and Hematology - [place] [place] [phone] Unruly Kenyon MD Benign hypertension; Non-small cell cancer of left lung (CMS/HCC) 01/24/2024 Orders Only [facility] Oncology and Hematology - [address] [place] [address] Unruly Kenyon MD Benign hypertension; Non-small cell cancer of left lung (CMS/HCC) 01/14/2024 Orders Only [facility] Oncology and Hematology - [address] [place] [phone] Unruly Kenyon MD 01/13/2024 Orders Only [facility] Oncology and Hematology - [address] [place] [address] Unruly Kenyon MD 01/10/2024 Orders Only [facility] Oncology and Hematology [facility] [address] [place] [address] Unruly Kenyon MD Benign hypertension; Non-small cell cancer of left lung (CMS/HCC) 12/31/2023 Orders Only [facility] Oncology and Hematology [facility] [address] [place] [address] Unruly Kenyon MD 12/29/2023 10:15 AM INTENSIVE CARE UNIT NURSE Office Visit [facility] Oncology and Hematology [facility] [address] [place] [address] Unruly Kenyon MD Non-small cell cancer of left lung (CMS/HCC) (Primary Dx) from Last 3 Months Family History Medical History Relation Name Comments Cancer Brother Congenital Heart Defect Daughter Heart Disease Father No Known Problems Mother No Known Problems Sister No Known Problems Son Relation Name Status Comments Brother Daughter Father Mother Sister Alive Son Alive Social History Tobacco Use Types Packs/Day Years Used Date Smoking Tobacco: Former Cigarettes 1.5 60 0 09/08/1961 - 09/08/2021 Smokeless Tobacco: Never Tobacco Cessation:Counseling Given: Not Answered Feeling Safe Answer Date Recorded Are you in a relationship wi th someone who hurts you emotionally and/or physically? No 09/15/2022 Sex and Gender Information Value Date Recorded Sex Assigned at Not on file Legal Sex Male 3:20 PM CDT Gender Identity Not on file Sexual Orientation Not on file Last Filed Vital Signs Vital Sign Reading Time Taken Comments Blood Pressure 130/71 03/08/2024 8:57 AM INTENSIVE CARE UNIT NURSE Pulse 101 03/08/2024 8:57 AM INTENSIVE CARE UNIT NURSE Temperature 36.5 C (97.7 F) 03/08/2024 8:57 AM INTENSIVE CARE UNIT NURSE Respiratory Rate 14 03/08/2024 8:57 AM INTENSIVE CARE UNIT NURSE Oxygen Saturation 93% 03/08/2024 8:57 AM INTENSIVE CARE UNIT NURSE Inhaled Oxygen Concentration - - Weight 83.6 kg (184 lb 3.2 oz) 03/08/2024 8:57 A M INTENSIVE CARE UNIT NURSE Height 177.8 cm (5' 10 ) 10/19/2022 3:58 PM CDT Body Mass Index 26.43 10/19/2022 3:58 PM CDT Plan of Treatment Upcoming Encounters Date Type Department Care Team (Late st Contact Info) Description 04/05/2024 9:15 AM INTENSIVE CARE UNIT NURSE Office Visit [facility] Oncology and Hematology - [place] [address] [facility] [address] [place] [address] Unruly Kenyon MD [address] [facility] [address] [place] [address] Health Maintenance Due Date Last Done Comments DTAP/TDAP/TD VACCINES (1 - Tdap) 1964 Traditional Medicare (ACO) Annual Wellness Visit 08/01 PNEUMOCOCCAL VACCINE 65+ YEARS (1 of 1 - PCV) 08/01/18 96 ZOSTER VACCINE (1 of 2) 08/02/1995 RSV VACCINE (60+ or ) (1 - 1-dose 75+ series) 2020 INFLUENZA VACCINE (#1) 2023 11/15/2019 Procedures Procedure Name Priority Date/Time Associated Diagnosis Comments CBC WITH DIFFERENTIAL Routine 03/08/2024 4:10 PM INTENSIVE CARE UNIT NURSE BASIC METABOLIC PANEL Routine 03/08/2024 9:29 AM INTENSIVE CARE UNIT NURSE BASIC METABOLIC PANEL Routine 03/08/2024 9:17 AM INTENSIVE CARE UNIT NURSE BASIC METABOLIC PANEL Routine 02/23/2024 4:14 PM INTENSIVE CARE UNIT NURSE CBC WITH DIFFERENTIAL Routine 02/23/2024 4:10 PM INTENSIVE CARE UNIT NURSE BASIC METABOLIC PANEL Routine 02/10/2024 4:53 PM INTENSIVE CARE UNIT NURSE COMPREHENSIVE METABOLIC PANEL Routine 02/10/2024 4:41 PM INTENSIVE CARE UNIT NURSE QUANTIFERON TB CONFIRMATION Routine 02/10/2024 12:03 PM INTENSIVE CARE UNIT NURSE BASIC METABOLIC PANEL Routine 01/12/2024 4:11 PM INTENSIVE CARE UNIT NURSE CBC WITH DIFFERENTIAL Routine 01/12/2024 2:18 PM INTENSIVE CARE UNIT NURSE COMPREHENSIVE METABOLIC PANEL Routine 01/12/2024 1:27 PM INTENSIVE CARE UNIT NURSE COMPREHENSIVE METABOLIC PANEL Routine 12/29/2023 2:01 PM INTENSIVE CARE UNIT NURSE CBC WITH DIFFERENTIAL Routine 12/29/2023 1:43 PM INTENSIVE CARE UNIT NURSE BASIC METABOLIC PANEL Routine 12/29/2023 1:20 PM INTENSIVE CARE UNIT NURSE from Last 3 Months Results * CBC WITH DIFFERENTIAL (03/08/2024 4:10 PM INTENSIVE CARE UNIT NURSE) Only the most recent of4 resultswithin the time period is included. Blood us Unruly Kenyon MD HEMATOLOGY ORDERABLES Final Res ult * BASIC METABOLIC PANEL (03/08/2024 9:29 AM INTENSIVE CARE UNIT NURSE) Only the most recent of6 resultswithin the time period is included. Blood us Unruly Kenyon MD CHEMISTRY ORDERABLES Final Resu lt * COMPREHENSIVE METABOLIC PANEL (02/10/2024 4:41 PM INTENSIVE CARE UNIT NURSE) Only the most recent of3 resultswithin the time period is included. Blood us Unruly Kenyon MD CHEMISTRY ORDERABLES Final Resu lt * QUANTIFERON TB CONFIRMATION (02/10/2024 12:03 PM INTENSIVE CARE UNIT NURSE) Blood us Unruly Kenyon MD CHEMISTRY ORDERABLES Final Resu lt from Last 3 Months Insurance MEDICARE PART A AND B [employer] MEDICARE SUPP AESSI MEDICARE PART A AND B AET MEDICARE SUPP AESSI Care Teams Nurse Aide Evaluator Relationship Specialty Start Date End Date Stephan Frazier DO [address] [facility] [address] [place] [address] PCP - General Internal Medicine 02/10/24
== END 2024-03-29 08:08 | disposition home or self-care (01) ==
PROVIDERS: PCP Nurse Practitioner; Visit Provider Internal Medicine Hematology & Oncology
DX: C34.92 Malignant neoplasm of unspecified part of left bronchus or lung (principal); J43.9 Emphysema, unspecified; C34.91 Malignant neoplasm of unspecified part of right bronchus or lung
CPT/HCPCS: 71260; Q9967

== ENCOUNTER 2024-04-07 08:08 | Outpatient (CLI) | payer MEDICARE, SELFPAY ==
--- NOTE | 2024-04-10 11:23 | WPDSIXMINUTE ---
Six Minute Walk Procedure Procedure Performed Pulmonary Stress Test (6 min walk) Six Minute Walk Six Minute Walk: This 6 minute walk test was carried out with the patient breathing supplemental oxygen at 2 liters/minute. The pre-walk baseline oxyhemoglobin saturation was 93%. The patient walked 300 feet with no stops during testing. During the walk the oxyhemoglobin saturation remained in the range of 81% to 91%. Impression: Significant oxyhemoglobin desaturation on supplemental oxygen at 2 liters/minute noted on this testing.
== END 2024-04-07 08:09 | disposition home or self-care (01) ==
LOC: ANHPFT 08:09
PROVIDERS: PCP Nurse Practitioner; Visit Provider Internal Medicine Critical Care Medicine
DX: J43.9 Emphysema, unspecified (principal)
CPT/HCPCS: 94618

== ENCOUNTER 2024-07-04 07:00 | Outpatient (CLI) | payer MEDICARE, SELFPAY ==
--- NOTE | ~2024-07-04 | CT_ITS ---
Clinical Indication: Lung cancer CT Scan of the Chest with Contrast: Technique: Contiguous sections were acquired throughout the chest after intravenous administration of 75 cc of Omnipaque 350. Dose reduction technique was used on this scan by utilizing automated exposu re control and iterative reconstruction technique. The dose-length product (DLP) was 279.85 mGy-cm. COMPARISON: 03/29/2024 Findings: There is no evidence of any significant mediastinal, hilar or axillary lymphadenopathy. There is no f illing defect in the pulmonary arterial tree to suggest pulmonary embolus. There is no evidence of ao rtic dissection or aneurysm. There is no evidence of pleural or pericardial effusion. There is advanced emphysema. 5 mm pleural-based nodule at the posterolateral right upper lobe noted ( axial image 51), new from prior exam. Stable left upper lobe scarring or posttreatment change periphe rally. Images through the upper abdomen reveal no abnormalities. Impression: Severe emphysema. Stable peripheral left upper lobe scarring or postradiation change. New 5 mm pleural-based nodule posterolateral right lower lobe. Follow-up exam in 6-12 months advised. Reviewed, dictated and finalized at location . Impression: Severe emphysema. Stable peripheral left upper lobe scarring or postradiation change. New 5 mm pleural-based nodule posterolateral right lower lobe. Follow-up exam i n 6-12 months advised.
--- OUTSIDE RECORDS SUMMARY | 2024-07-04 07:04 | XMS_ITS | Clinical Summary ---
Author Organization [facility] Pric[facility] Assistant Address [address] [place] [address] Care Team Providers Care Evp Chief Exploration Officer Name Role Phone Stephan Frazier DO Primary Care Provider [phone] Source Comments [facility] [employer],non-owned Affiliates and Associated Physician Practices is amultiple site organization consisting of ambulatory clinics and hospital sitesin [place], [place], [place] and [place]. This disclosure is being madepursuant to the Care Everywhere program and may not contain all information available regarding this patient. Last updated 17.[facility] [facility] Allergies No known active allergies Immunizations Immunization Administration Dates Next Due INFLUENZA VACCINE, HIGH-DOSE , QUADR. (FLUZONE HIGH-DOSE QUADRIVALENT; 65Y+), 0.7 ML (HD-IIV4) 11/15/2019 Social History Tobacco Use Types Packs/Day Years Used Date Smoking Tobacco: Never Assessed Sex and Gender Information Value Date Recorded Sex Assigned at Not on file Legal Sex Male 11:24 AM CITY SOLICITOR Gender Identity Not on file Sexual Orientation Not on file Plan of Treatment Health Maintenance Due Date Last Done Comments HEPATITIS C SCREENING 07/28/1963 DTAP/TDAP/TD VACCINES (1 - Tdap) 1964 PNEUMOCOCCAL VACCINE 50+ (1 of 1 - PCV) 08/02/1995 ZOSTER VACCINE (1 of 2) 08/02/1995 Respiratory Syncytial Virus (RSV) Vaccine Pt: or over 60 yrs (1 - 1-dose 75+ series) 2020 COVID-19 VACCINE ( - 2023-2 5 season) 2023 DEPRESSION SCREENING 02/09/2024 INFLUENZA VACCINE (Season Ended) 2024 11/15/19 20 HEPATITIS B VACCINE Aged Out No longe r eligible based on patient's age to complete this topic HIB VACCINE Aged Out No longer eligi ble based on patient's age to complete this topic HPV VACCINE Aged Out No longer eligi ble based on patient's age to complete this topic MENINGOCOCCAL (Group B) VACC INE SHARED DECISION-MAKING Aged Out No longer eligibl e based on patient's age to complete this topic MENINGOCOCCAL GROUPS A/C/Y/W VACCINE Aged Out No longer eligible b ased on patient's age to complete this topic Insurance MEDICARE AETNA MEDICARE AETNA Care Teams Evp Chief Exploration Officer Relationship Specialty Start Date End Date Stephan Frazier DO [address] [place], [place] [id number] PCP - General 07/14/20
--- OUTSIDE RECORDS SUMMARY | 2024-07-04 07:04 | XMS_ITS | Clinical Summary ---
Author Organization [facility] Address [address] [place] [address] Phone Care Team Providers Care Community Recreation Programmer Name Role Phone Stephan Frazier Primary Care Provider [phone] Allergies No known active allergies Medications aspirin [...] Encounters Date Type Department Care Team Description 06/29/2024 External Device Data ST[facility] ABSTRACTION Provider, Abstract 06/28/2024 External Device Data STL ABSTRACTION Provider, Abstract 06/27/2024 External Device Data STL ABSTRACTION Provider, Abstract 06/26/2024 Orders Only [facility] ([facility] Oncology and Hematology - Gregorio [address] [place] [id number] Unruly Kenyon MD Non-small cell cancer of left lung ([facility]/HCC) 06/12/2024 Orders Only [facility] ([facility] Oncology and Hematology - Gregorio [address] [place] [address] Unruly Kenyon MD Non-small cell cancer of left lung ([facility]/HCC) 05/29/2024 Orders Only [facility] ([facility] Oncology and Hematology - Gregorio [address] [place] [address] Unruly Kenyon MD Non-small cell cancer of left lung ([facility]/HCC) 05/15/2024 Orders Only [facility] ([facility] Oncology and Hematology - Gregorio [address] [place] [address] Unruly Kenyon MD Non-small cell cancer of left lung (CMS/HCC) 05/01/2024 Orders Only [facility] ([facility] Oncology and Hematology - Gregorio [address] [place] [address] Unruly Kenyon MD Non-small cell cancer of left lung ([facility]/HCC) 04/26/2024 External Device Data STL ABSTRACTION Provider, Abstract 04/17/2024 Orders Only [facility] ([facility] Oncology and Hematology - Gregorio [address] [place] [address] Unruly Kenyon MD Benign hypertension; Non-small cell cancer of left lung (CMS/HCC) 04/15/2024 External Device Data STL ABSTRACTION Provider, Abstract 04/14/2024 External Device Data STL ABSTRACTION Provider, Abstract from Last 3 Months Family History Medical [...] Sign Reading Time Taken Comments Blood Pressure 124/76 04/05/2024 8:49 AM AUTOGLAZIER Pulse 106 04/05/2024 8:49 AM AUTOGLAZIER Temperature 36.2 C (97.2 F) 04/05/2024 8:49 AM AUTOGLAZIER Respiratory Rate 18 04/05/2024 8:49 AM AUTOGLAZIER Oxygen Saturation 93% 03/08/2024 8:57 AM AUTOGLAZIER Inhaled Oxygen Concentration - - Weight 85 kg (187 lb 6.4 oz) 04/05/2024 8:49 AM AUTOGLAZIER Height 177.8 cm (5' 10 ) 10/19/2022 3:58 PM CDT Body Mass Index 26.89 10/19/2022 3:58 PM CDT Plan of Treatment Upcoming Encounters Date Type Department Care Team (Late st Contact Info) Description 07/11/2024 9:45 AM CDT Office Visit [facility] ([facility] Oncology and Hematology - Gregorio [address] [place] [address] Unruly Kenyon MD [address] [employer] [address] [place] [address] Health Maintenance Due Date Last Done Comments DTAP/TDAP/TD VACCINES (1 - Tdap) 1964 PNEUMOCOCCAL VACCINE 50+ YEARS (1 of 1 - PCV) 08/01/18 96 ZOSTER VACCINE (1 of 2) 08/02/1995 RSV VACCINE (60+ or ) (1 - 1-dose 75+ series) 2020 INFLUENZA VACCINE (#1) 2023 11/15/2019 Insurance MEDICARE PART A AND B AETNA MEDICARE SUPP AESSI MEDICARE PART A AND B AETNA MEDICARE SUPP AESSI Care Teams Community Recreation Programmer Relationship Specialty Start Date End Date Stephan Frazier DO [address] [facility] [address] [facility] [address] [place] [address] PCP - General Internal Medicine 02/10/24
[2024-07-04 07:25] LABS: Estimated Glomerular Filt Rate 53
== END 2024-07-04 07:01 | disposition home or self-care (01) ==
PROVIDERS: PCP Nurse Practitioner; Visit Provider Internal Medicine Hematology & Oncology
DX: C34.92 Malignant neoplasm of unspecified part of left bronchus or lung (principal); J43.9 Emphysema, unspecified; R91.1 Solitary pulmonary nodule
CPT/HCPCS: 71260; Q9967

== ENCOUNTER 2024-08-08 09:30 | Outpatient (RCR) | payer MEDICARE, SELFPAY ==
[2024-04-11 08:43] VITALS: BP 122/62; PULSE 95; RESP 16; O2SAT 96
[2024-04-11 09:13] VITALS: PULSE 95
== END 2024-08-08 23:59 | disposition home or self-care (01) ==
LOC: ANHCPREHAB 09:30
PROVIDERS: PCP Nurse Practitioner; Visit Provider Internal Medicine Critical Care Medicine
DX: J43.9 Emphysema, unspecified (principal)
CPT/HCPCS: 94625

== ENCOUNTER 2024-09-26 09:30 | Outpatient (RCR) | payer MEDICARE, SELFPAY ==
[2024-08-10 00:06] VITALS: BP 122/62; PULSE 95; RESP 16; O2SAT 96
== END 2024-09-26 10:14 | disposition home or self-care (01) ==
LOC: ANHCPREHAB 09:30
PROVIDERS: PCP Nurse Practitioner; Visit Provider Internal Medicine Critical Care Medicine
DX: J43.9 Emphysema, unspecified (principal)
CPT/HCPCS: 94625

== ENCOUNTER 2024-09-29 12:24 | Outpatient (CLI) | payer MEDICARE, SELFPAY ==
--- OUTSIDE RECORDS SUMMARY | 2024-09-29 12:28 | XMS_ITS | Clinical Summary ---
Author Organization [facility] [employer] Address [address] [place] [address] Care Team Providers Care Foxing Cutting Machine Operator Name Role Phone Stephan Frazier DO Primary Care Provider [phone] Source Comments [facility],non-owned Affiliates and Associated Physician Practices is amultiple site organization consisting of ambulatory clinics and hospital sitesin [place], [place], [place] and [place]. This disclosure is being madepursuant to the Care Everywhere program and may not contain all information available regarding this patient. Last updated 17.[facility] Allergies No known active allergies Immunizations Immunization Administration Dates Next Due INFLUENZA VACCINE, HIGH-DOSE , QUADR. 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 Gender Identity Not on file Sexual Orientation Not on file Plan of Treatment Health Maintenance Due Date Last Done Comments DTAP/TDAP/TD VACCINES (1 - Tdap) 1964 PNEUMOCOCCAL VACCINE 50+ (1 of 1 - PCV) 08/02/1995 ZOSTER VACCINE (1 of 2) 08/02/1995 Respiratory Syncytial Virus (RSV) Vaccine Pt: or over 60 yrs (1 - 1-dose 75+ series) 2020 COVID-19 VACCINE (1 - 2023-2 5 season) 2023 DEPRESSION SCREENING 02/09/2024 INFLUENZA VACCINE (#1) 2024 11/15/2019 HEPATITIS B VACCINE Aged Out No longe [...] age to complete this topic Insurance MEDICARE AET MEDICARE AETNA Care Teams Foxing Cutting Machine Operator Relationship Specialty Start Date End Date Stephan Frazier DO [address] [place] [address] PCP - General 07/14/20
--- OUTSIDE RECORDS SUMMARY | 2024-09-29 12:28 | XMS_ITS | Clinical Summary ---
Author Organization [facility] Address [address] [place] [address] Phone Care Team Providers Care [employer] Launch Commander Name Role Phone Stephan Frazier Primary Care Provider [phone] Allergies No known active allergies Medications aspirin [...] Redness. 35 Gram 1 05/06/19 24 Active Trelegy Ellipta 200-62.5-25 mcg Disk with Device Take 1 Puff by inhalation daily. 07/07/19 25 Active Active Problems No known active problems Encounters Date Type Department Care Team Description 09/26/2024 External Device Data STL ABSTRACTION Provider, Abstract 09/26/2024 External Device Data STL ABSTRACTION Provider, Abstract 09/18/2024 Orders Only [facility] Oncology and Hematology - Gregorio [address] Unruly Kenyon MD Non-small cell cancer of left lung ([facility]/HCC) 09/13/2024 External Device Data STL ABSTRACTION Provider, Abstract 09/04/2024 Orders Only [facility] Oncology and Hematology - Greg[address] [place] [phone] Unruly Kenyon MD Non-small cell cancer of left lung ([facility]/HCC) 08/23/2024 External Device Data STL ABSTRACTION Provider, Abstract 08/23/2024 External Device Data STL ABSTRACTION Provider, Abstract 08/23/2024 External Device Data STL ABSTRACTION Provider, Abstract 08/22/2024 External Device Data STL ABSTRACTION Provider, Abstract 08/21/2024 Orders Only [facility] Oncology and Hematology - Greg[address] [place] [phone] Unruly Kenyon MD Non-small cell cancer of left lung ([facility]/HCC) 08/07/2024 Orders Only [facility] Oncology and Hematology - Greg[address] [place] [address] Unruly Kenyon MD Non-small cell cancer of left lung ([facility]/HCC) 07/25/2024 External Device Data STL ABSTRACTION Provider, Abstract 07/24/2024 Orders Only [facility] Oncology and Hematology - Greg[address] [place] [address] Unruly Kenyon MD Non-small cell cancer of left lung (CMS/HCC) 07/11/2024 9:45 AM CDT Office Visit [facility] Oncology and Hematology [facility] [address] [place] [address] Unruly Kenyon MD Non-small cell cancer of left lung (CMS/HCC) (Primary Dx) 07/10/2024 Orders Only [facility] Oncology and Hematology [facility] [address] [place] [address] Unruly Kenyon MD Non-small cell cancer of left lung (CMS/HCC) 07/04/2024 External Device Data STL ABSTRACTION Provider, Abstract 06/29/2024 External Device Data STL ABSTRACTION Provider, [...] Sign Reading Time Taken Comments Blood Pressure 131/87 07/11/2024 9:43 AM CDT Pulse 111 07/11/2024 9:43 AM CDT Temperature 36.7 C (98 F) 07/11/2024 9:43 AM CDT Respiratory Rate 15 07/11/2024 9:43 AM CDT Oxygen Saturation 90% 07/11/2024 9:43 AM CDT Inhaled Oxygen Concentration - - Weight 82.6 kg (182 lb) 07/11/2024 9:43 AM CDT Height 177.8 cm (5' 10) 10/19/2022 3:58 PM CDT Body Mass Index 26.11 10/19/2022 3:58 PM CDT Plan of Treatment Upcoming Encounters Date Type Department Care Team (Late st Contact Info) Description 10/23/2024 9:30 AM CDT Office Visit [facility] Oncology and Hematology - Gregorio [address] [facility] [address] [place] [address] Unruly Kenyon MD [address] [facility] [address] [place] [address] Health Maintenance Due Date Last Done Comments DTAP/TDAP/TD VACCINES (1 - Tdap) 1964 PNEUMOCOCCAL VACCINE 50+ YEARS (1 of 1 - PCV) 08/01/18 96 ZOSTER VACCINE (1 of 2) 08/02/1995 RSV VACCINE (60+ or ) (1 - 1-dose 75+ series) 2020 INFLUENZA VACCINE (#1) 2024 11/15/2019 Insurance MEDICARE PART A AND B AETNA MEDICARE SUPP AESSI MEDICARE PART A AND B AETNA MEDICARE SUPP AESSI Care Teams [employer] Launch Commander Relationship Specialty Start Date End Date Stephan Frazier DO [address] [facility] [address] [facility] [address] [place] [id number] PCP - General Internal Medicine 02/10/24
--- NOTE | 2024-09-29 17:55 | WPDSIXMINUTE ---
Six Minute Walk Procedure Procedure Performed Pulmonary Stress Test (6 min walk) Six Minute Walk Six Minute Walk: This is a 6 minute walk test. The test was performed and interpreted in accordance with the 2014 ERS/ATS task force guidelines. Of note, patient wore 4 L nasal cannula from a portable oxygen concentrator and used to wheeled walker. Findings: The patient's resting 4 L nasal cannula oxygen saturation measured by pulse oximetry was 94%, the heart rate was 103 bpm, and the modified Ofelia dyspnea score was 0. Patient ambulated for 107 meters and oxygen saturation remained 88 to 89%. At the end of the study the heart rate was 122 bpm and the modified Ofelia dyspnea score was 1 to 2. The patient did not have resting desaturations on 4 L nasal cannula but did have desaturations to 88% on 4 L with ambulation. Recommend formal home O2 assessment. Compared to 6 minute walk on 04/07/2024 which was done on 2 L nasal cannula, ambulatory distance improved from 91 m to 107 m and previously on 2 L his nick saturation was 85%.
== END 2024-09-29 12:25 | disposition home or self-care (01) ==
PROVIDERS: PCP Internal Medicine; Visit Provider Internal Medicine Critical Care Medicine
DX: J43.9 Emphysema, unspecified (principal)
CPT/HCPCS: 94618

== ENCOUNTER 2024-10-11 07:30 | Outpatient (CLI) | payer MEDICARE, SELFPAY ==
--- NOTE | ~2024-10-11 | CT_ITS ---
Exam: CT chest with contrast Clinical History: [Lung cancer. ] Comparison: [ CT chest 07/04/2024 and 03/29/2024] Technique: Multiple axial CT images of the chest with IV contrast. Sagittal and coronal reformatted images were obtained. FINDINGS: Lungs and pleura: [ Tracheobronchial tree is patent. No pneumothorax. Tiny left- sided pleural effusion. No pulmonary mass. Stable postoperative/radiation changes in the left upper lobe. Stable emphysema. The previously described 5 mm pleural-based nodule in the right lower lobe is no longer present. No new pulmonary nodules. Mediastinum and pulmonary johana: [ No mass or adenopathy.] Axillary/intramammary and supraclavicular: [ No mass or adenopathy.] Heart and great vessels: [ Normal heart size.[ [ No pericardial effusion.] [ No aneurysm.] Mild atherosclerotic disease in the thoracic aorta. There are a few coronary artery calcifications. Chest Wall: [ Unremarkable.] Upper Abdomen: Probable small hiatal hernia. Thickening of the colbert of the distal esophagus. Osseous structures: [ No acute fracture or destructive lesion.] [ Multilevel degenerative change in the visualized spine.] Additional findings: [ None of significance.] IMPRESSION: 1. The previously described 5 mm pleural-based nodule in the right lower lobe is no longer present. No new pulmonary nodules. 2. Stable postoperative/radiation changes in the left upper lobe. 3. Probable small hiatal hernia. 4. Thickening of the colbert of the distal esophagus. 5. Tiny left-sided pleural effusion. 6. Severe emphysema. Reviewed, dictated and finalized at location Q. IMPRESSION: 1. The previously described 5 mm pleural-based nodule in the right lower lobe i s no longer present. No new pulmonary nodules. 2. Stable postoperative/radiation changes in the left upper lobe. 3. Probable small hiatal hernia. 4. Thickening of the colbert of the distal esophagus. 5. Tiny left-sided pleural effusion. 6. Severe emphysema.
== END 2024-10-11 07:31 | disposition home or self-care (01) ==
PROVIDERS: PCP Internal Medicine; Visit Provider Internal Medicine Hematology & Oncology
DX: C34.92 Malignant neoplasm of unspecified part of left bronchus or lung (principal)
CPT/HCPCS: 71260; Q9967

== ENCOUNTER 2025-01-01 08:23 | Outpatient (CLI) | payer MEDICARE, SELFPAY ==
--- NOTE | ~2025-01-01 | CT_ITS ---
EXAMINATION:CT diagnostic chest w con DATE: 01/01/2025 08:58 INDICATION: Non-small cell lung cancer left lung TECHNIQUE: Computed tomography (CT) of the chest was performed with 100 mL intravenous contrast. Automated exposure control and iterative reconstruction technique were employed. The dose-length product (DLP) was 242.02 mGy-cm. COMPARISON: CT dated 10/11/2024. FINDINGS: No focal mass in the supraclavicular fossa or axilla. Severe facet metastatic changes of lungs. Stable chronic fibrotic changes in the left upper lobe. Prominent central pulmonary arteries due to pulmonary hypertension. No well-defined pulmonary mass. No pleural or pericardial effusion IMPRESSION: 1. Severe emphysematous changes of lungs with evidence of pulmonary arterial hypertension. 2. Stable chronic patchy fibrotic changes in the left upper lobe. 3. Multivessel coronary artery calcification. Calcific changes of aortic valve cusps indicating some degree of aortic stenosis. Reviewed, dictated and finalized at location T. CHBO[facility] RECEPTIONIST IMPRESSION: 1. Severe emphysematous changes of lungs with evidence of pulmonary arterial hy pertension. 2. Stable chronic patchy fibrotic changes in the left upper lobe. 3. Multivessel coronary artery calcification. Calcific changes of aortic valve cusps indicating some degree of aortic stenosis.
--- OUTSIDE RECORDS SUMMARY | 2025-01-01 08:33 | XMS_ITS | Clinical Summary ---
Author Organization [facility] [employer] Address [address] [place] [address] Care Team Providers Care Elementary Spanish Teacher Name Role Phone Stephan Frazier DO Primary Care Provider [phone] Source Comments [facility] [employer],non-owned Affiliates and Associated Physician Practices is amultiple site organization consisting of ambulatory clinics and hospital sitesin [place], [place], [place] and [place]. This disclosure is being madepursuant to the Care Everywhere program and may not contain all information available regarding this patient. Last updated 17.[facility] [employer] Allergies No known active allergies Immunizations Immunization Administration Dates Next Due INFLUENZA VACCINE, HIGH-DOSE , QUADR. 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 Gender Identity Not on file Sexual Orientation Not on file Plan of Treatment Health Maintenance Due Date Last Done Comments DTAP/TDAP/TD VACCINES (1 - Tdap) 1964 PNEUMOCOCCAL VACCINE 50+ (1 of 1 - PCV) 08/02/1995 ZOSTER VACCINE (1 of 2) 08/02/1995 Respiratory Syncytial Virus (RSV) Vaccine Pt: or over 60 yrs (1 - 1-dose 75+ series) 2020 DEPRESSION SCREENING 02/09/2024 COVID-19 VACCINE ( - 2024-2 6 season) 2024 INFLUENZA VACCINE (#1) 2024 11/15/2019 HEPATITIS B [...] Insurance MEDICARE AET MEDICARE AETNA Care Teams Elementary Spanish Teacher Relationship Specialty Start Date End Date Stephan Frazier DO [address] [place] [address] PCP - General 07/14/20
--- OUTSIDE RECORDS SUMMARY | 2025-01-01 08:33 | XMS_ITS | Patient Health Record ---
Author Organization [facility] ([address]) Address [address] [place] [address] Care Team Providers Care Almond Pan Finisher Name Role Phone Earnestine Beatty Primary Care Provider Geneva Sierra Unavailable [phone] Stephan Frazier Unavailable Unavailable Allergies No Known Allergies Reason For Referral No Information Medications Medication SIG (Take, Route, Frequency, Duration) Notes Start Date End Date Status Ipratropium Declo 0.03 % SPRAY 2 SPRAY S INTO EACH NOSTRIL TWICE DAILY FOR A MONTH OR 1 SPRAY INTO EACH NOSTRIL THREE TIMES DAILY Nasal Active Pravastatin Sodium 40 MG 1 tablet Orally Once a day Active Levothyroxine Sodium 100 MCG 1 tablet in the morning on an empty stomach Orally Once a day Active Flonase Allergy Relief 50 MCG/ACT 1 spray in each nostril Nasally Twice a day Active Trelegy Ellipta 100-62.5-25 MCG/ACT 1 puff Inhalation Once a day Active Nasal Washes N/A as directed intranasally Active Albuterol Sulfate (2.5 MG/3ML) 0.083% 3 mL as needed Inhalation every 6 hrs Active amLODIPine Besylate 5 MG 1 tablet Orally Once a day Active Azelastine HCl 137 MCG/SPRAY 2 sprays in each nostril Nasally Twice a day; Duration: 30 days 08/09/2024 Active Albuterol Sulfate HFA 108 (90 Base) MCG/ACT 1 puff as needed Inhalation every 4 hrs Active Fluticasone Propionate 50 MCG/ACT 2 sprays in each nostril Nasally Twice a day; Duration: 30 days 08/09/2024 Active Dupixent 300 MG/2ML as directed Subcutaneous Active Imfinzi Active Timolol Maleate (Once-Daily) 0.5 % 1 drop into affected eye Ophthalmic Once a day Active Lumigan 0.01 % 1 drop into affected eye in the evening Ophthalmic Once a day Active Social History Tobacco Use: Social History Observation Description Date Details (start date - stop date) Former Smoker NA - NA Sex Assigned At : Social History Observation Description Sex Assigned At Male Tobacco Control (Standard) Question Answer Notes Tobacco use: Former smoker How long has it been since you last smoked? 1-5 years AUDIT-C (Standard) Question Answer Notes Did you have a drink containing alcohol in the p ast year? No Points 0 Interpretation Negative Section Notes: no animals in the home, base ment is dry no animals in the home, base ment is dry Problems Problem Type SNOMED Code ICD Code Onset Dates Problem Status W/U Status Risk Notes Problem Chronic rhinitis (70121900) Chronic rhinitis (J31.0) Active confirmed Problem Emphysema (63384712) Emphysema, unspecified (J43.9) Active confirmed Problem Chronic obstructive pulmonary disease (43917357) Chronic obstructive pulmonary disease, unspecified (J44.9) Active confirmed Problem Personal history of primary malignant neoplasm of bronchus (146771760) Personal history of other malignant neoplasm of bronchus and lung (Z85.118) Active confirmed Problem Dependence on supplemental oxygen (374306742863) Dependence on supplemental oxygen (Z99.81) Active confirmed Vital Signs Oximetry 99 % 09/19/2024 Blood pressure diastolic 73 mm Hg 09/19/2024 Height 70 in 09/19/2024 Blood pressure systolic 115 mm Hg 09/19/2024 Weight 177.2 lbs 09/19/2024 BMI 25.42 kg/m2 09/19/2024 Encounters Encounter Location Date Provider Diagnosis [facility] [address] [employer] [address] [address] 09/19/2024 Geneva Akins Chronic rhinitis J31.0 ; Chronic obstructive pulmonary disease, unspecified J44.9 ; Emphysema, unspecified J43.9 ; Personal history of other malignant neoplasm of bronchus and lung Z85.118 ; Deviated nasal septum J34.2 and Dependence on supplemental oxygen Z99.81 [facility] 2022 [facility] [address] [place] [address] 08/09/2024 Geneva Akins Chronic rhinitis J31.0 ; Chronic obstructive pulmonary disease, unspecified J44.9 ; Emphysema, unspecified J43.9 ; Personal history of other malignant neoplasm of bronchus and lung Z85.118 ; Deviated nasal septum J34.2 and Dependence on supplemental oxygen Z99.81 Assessments Encounter Date Diagnosis (ICD Code) Assessment Notes Treatment Notes Treatment Clinical Notes Section Notes 08/09/2024 Chronic rhinitis (ICD-10 - J31.0) Given the history and symptoms, skin testing was performed to common aeroallergens to determine atopic status. Skin testing today was negative for aeroallergens. We discussed non allergic rhinitis including trigger factors of strong odors and changes in barometric pressure. Most of his symptoms with wearing oxygen may be related to dryness. Start daily sinus rinses and samples given. He is also starting Dupixent today and monitor for improvement in congestion. Stop daily Zyrtec. 08/09/2024 Chronic obstructive pulmonary disease, unspecified (ICD-10 - J44.9) Currently treated with Trelelgy and starting Dupixent in addition to supplemental oxygen. Monitor for improvement in nasal congestion after starting Dupixent. No signs of polyps on exam. 09/19/2024 Chronic rhinitis (ICD-10 - J31.0) Skin testing at his initial visit was negative for aeroallergens. We discussed non allergic rhinitis including trigger factors of strong odors and changes in barometric pressure. Most of his symptoms with wearing oxygen may be related to dryness. He has seen much improvement with sinus rinses and ipratropium nasal spray. 09/19/2024 Chronic obstructive pulmonary disease, unspecified (ICD-10 - J44.9) Currently treated with Trelelgy and started Dupixent in addition to supplemental oxygen. Appears to see much improvement in shortness of breath with Dupixent. Continue to monitor for improvement in nasal congestion after starting Dupixent. No signs of polyps on exam. 08/09/2024 Emphysema, unspecified (ICD-10 - J43.9) 09/19/2024 Emphysema, unspecified (ICD-10 - J43.9) 08/09/2024 Personal history of other malignant neoplasm of bronchus and lung (ICD-10 - Z85.118) 09/19/2024 Personal history of other malignant neoplasm of bronchus and lung (ICD-10 - Z85.118) 08/09/2024 Deviated nasal septum (ICD-10 - J34.2) 09/19/2024 Deviated nasal septum (ICD-10 - J34.2) 08/09/2024 Dependence on supplemental oxygen (ICD-10 - Z99.81) 09/19/2024 Dependence on supplemental oxygen (ICD-10 - Z99.81) 08/09/2024 Other 09/19/2024 Other Plan Of Treatment No Information Insurance Providers Payer Name Payer Address Payer Phone Subscriber Number Group Number Insured Name Patient Relationship to Insured Coverage Start Date Coverage End Date [employer] (Medicare) Attention Claims [address] [facility] [place] [address] [id number] Calvin Ball Self - patient is the insured [facility] [employer] [address] [address] [place] [phone] [id number] Calvin Ball Self - patient is the insured Medical (General) History Medical History History ICD Code COPD Non small cell lung cancer Emphysema
--- OUTSIDE RECORDS SUMMARY | 2025-01-01 08:33 | XMS_ITS | Clinical Summary ---
Author Organization [facility] Address [address] [place] [address] Phone Care Team Providers Care Aviation Medicine Specialist Name Role Phone Stephan Frazier DO Primary Care Provider [phone] Allergies No known active allergies Medications aspirin [...] Encounters Date Type Department Care Team Description 12/06/2024 External Device Data [facility] ABSTRACTION Provider, Abstract 12/05/2024 External Device Data [facility] ABSTRACTION Provider, Abstract 11/29/2024 External Device Data [facility] ABSTRACTION Provider, Abstract 11/28/2024 External Device Data [facility] ABSTRACTION Provider, Abstract 11/13/2024 Orders Only [facility] - [address] [place] [address] Unruly Kenyon MD Non-small cell cancer of left lung (CMS/HCC) 10/30/2024 Orders Only [facility] - [place] [address] [place] [address] Unruly Kenyon MD Non-small cell cancer of left lung (CMS/HCC) 10/24/2024 External Device Data [facility] ABSTRACTION Provider, Abstract 10/24/2024 External Device Data [facility] ABSTRACTION Provider, Abstract 10/24/2024 Orders Only [facility] - [address] [place] [address] Unruly Kenyon MD 10/23/2024 9:30 AM CDT Office Visit [facility] - [address] [place] [address] Unruly Kenyon MD Non-small cell cancer of left lung ([facility]/HCC) (Primary Dx) 10/18/2024 Orders Only [facility] - [place] [address] [place] [address] Unruly Kenyon MD 10/16/2024 Orders Only [facility] - [place] [address] [place] [address] Unruly Kenyon MD Non-small cell cancer of left lung (CMS/HCC) 10/02/2024 Orders Only [facility] - [place] [address] [place] [id number] Unruly Kenyon MD Non-small cell cancer of left lung (CMS/HCC) from Last 3 Months Family History Medical [...] Sign Reading Time Taken Comments Blood Pressure 140/98 10/23/2024 9:25 AM CDT Pulse 88 10/23/2024 9:22 AM CDT Temperature 36.7 C (98.1 F) 10/23/2024 9:22 AM CDT Respiratory Rate 16 10/23/2024 9:22 AM CDT Oxygen Saturation 86% 10/23/2024 9:22 AM CDT Inhaled Oxygen Concentration - - Weight 82.6 kg (182 lb) 07/11/2024 9:43 AM CDT Height 177.8 cm (5' 10) 10/19/2022 3:58 PM CDT Body Mass Index 26.11 10/19/2022 3:58 PM CDT Plan of Treatment Upcoming Encounters Date Type Department Care Team (Late st Contact Info) Description 01/09/2025 9:45 AM DOOR CAPTAIN Office Visit [facility] - [place] [address] [place] [address] Unruly Kenyon MD [address] [facility] [address] [place] [address] Health Maintenance Due Date Last Done Comments DTAP/TDAP/TD VACCINES (1 - Tdap) 1964 RSV VACCINE (60+ or ) (1 - 1-dose 75+ series) 2020 INFLUENZA VACCINE (#1) 2024 2, 11/27/2020, 11/15/2019, Additional history exists PNEUMOCOCCAL VACCINE 50+ YEARS Completed 11/16/2016 , 11/07/2014 ZOSTER VACCINE Completed 10/06/2021, 07/24/2021 COLORECTAL SCREENING Discontinued 10/26/2022 Colorectal Cancer Screening Discontinued FIT-DNA Q 3 years Discontinued FIT/FOBT Q 1 year Discontinued Flex Sig/CT Colonography Q 5 years Discontinued Procedures Procedure Name Priority Date/Time Associated Diagnosis Comments BASIC METABOLIC PANEL Routine 10/23/2024 11:48 AM CDT COMPREHENSIVE METABOLIC PANEL Routine 10/23/2024 11:[address] CHEST W CONTRAST Routine 10/11/2024 1 2:25 PM CDT from Last 3 Months Results * BASIC METABOLIC PANEL (10/23/2024 11:48 AM CDT) Blood Unruly Kenyon MD CHEMISTRY ORDERABLES Final Resu lt * COMPREHENSIVE METABOLIC PANEL (10/23/2024 11:45 AM CDT) Blood us Unruly Kenyon MD CHEMISTRY ORDERABLES Final Resu lt * CT CHEST W CONTRAST (10/11/2024 12:25 PM CDT) Anatomical Region Laterality Modality Chest Computed Tomogra phy us Unruly Kenyon MD CT ORDERABLES Final Result from Last 3 Months Insurance MEDICARE PART A AND B [employer] MEDICARE SUPP AESSI MEDICARE PART A AND B [employer]ET[employer] MEDICARE SUPP AESSI Care Teams Aviation Medicine Specialist Relationship Specialty Start Date End Date Stephan Frazier DO [address] [facility] [address] [facility] [address] [place] [address] PCP - General Internal Medicine 02/10/24
[2025-01-01 10:09] LABS: Estimated Glomerular Filt Rate 58
== END 2025-01-01 08:24 | disposition home or self-care (01) ==
PROVIDERS: PCP Internal Medicine; Visit Provider Internal Medicine Hematology & Oncology
DX: J43.9 Emphysema, unspecified (principal); I27.21 Secondary pulmonary arterial hypertension; J84.10 Pulmonary fibrosis, unspecified; I25.10 Atherosclerotic heart disease of native coronary artery without angina pectoris; C34.92 Malignant neoplasm of unspecified part of left bronchus or lung
CPT/HCPCS: 71260; Q9967